=== PATIENT | female | born 1965 | race Caucasian/White ===

== ENCOUNTER → 2016-09-15 | Outpatient (CLI) | payer OTHER ==
--- NOTE | 2016-09-17 11:47 | MM ---
Reason for exam: screening (asymptomatic). Last mammogram was performed 4 years and 2 months ago. History: Patient is postmenopausal. Took hormonal contraceptives for 11 years beginning at age 30. Physical Findings: A clinical breast exam by your physician is recommended on an annual basis and results should be correlated with mammographic findings. MG Screening Mammo w CAD Bilateral CC and MLO view(s) were taken. Prior study comparison: July 26, 2012, bilateral digital screening mammo w/CAD. July 07, 2010, bilateral digital screening mammo w/CAD. The breast tissue is heterogeneously dense. This may lower the sensitivity of mammography. No significant changes when compared with prior studies. ASSESSMENT: Negative, BI-RAD 1 RECOMMENDATION: Routine screening mammogram of both breasts in 1 year.
== END | disposition home or self-care (01) ==
LOC: RADMAMWWP 16:33
PROVIDERS: ATTEND Family Medicine
DX: Z12.31 Encounter for screening mammogram for malignant neoplasm of breast (principal)

== ENCOUNTER → 2016-11-03 | Outpatient (CLI) | payer OTHER ==
--- NOTE | 2016-11-03 20:17 | CT ---
EXAMINATION TYPE: CT abdomen pelvis wo con DATE OF EXAM: 11/03/2016 6:54 PM COMPARISON: 05/03/2012 HISTORY: Left lower quadrant abdominal pain x [address] 1[address] DLP: 229.10 mGycm Automated exposure control for dose reduction was used. TECHNIQUE: Helical acquisition of images was performed from the lung bases through the pelvis. FINDINGS: The lung bases are clear. There is no pleural effusion. Heart size is normal. Liver spleen pancreas gallbladder appear normal. Bile ducts are not dilated. There is no adrenal mass. Kidneys have normal size and contour. There is no hydronephrosis. There is no retroperitoneal adenopathy. I see no intestinal wall thickening. There are no dilated loops. Bladd er distends smoothly. There is no sign of a pelvic mass. Appendix is not seen. There is no sign of ap pendicitis. I see no bony destructive process. Uterus is absent. IMPRESSION: NEGATIVE CT SCAN OF THE ABDOMEN AND PELVIS. NO ADVERSE CHANGE COMPARED TO OLD EXAM.
== END | disposition home or self-care (01) ==
LOC: RADCTMAIN 18:33
PROVIDERS: ATTEND Family Medicine
DX: R10.32 Left lower quadrant pain (principal)
CPT/HCPCS: 74176

== ENCOUNTER 2016-11-23 09:29 | Day surgery (SDC) | payer OTHER ==
[2016-11-23 10:20] VITALS: RESP 18; TEMP 97
[2016-11-23] MEDS ORDERED: LACTATED RINGERS 1,000 ML IV ONE (10:33)
[2016-11-23] MEDS ORDERED: LIDOCAINE 1% 20 ML VIAL (10MG/ML) FOR IV START INTRADERMA ONE (10:34)
[2016-11-23] MEDS ORDERED: PROPOFOL 10 MG/ML 20 ML VIAL IV ONE (11:02)
[2016-11-23] MEDS ORDERED: fentaNYL (PF) 50 MCG/ML 2 ML AMP ONE (11:02)
--- NOTE | 2016-11-23 11:18 | P.GSHP ---
History of Present Illness H&P Date: 11/23/16 Chief Complaint: Left lower quadrant pain This a 51-year-old female who presents today for colonoscopy. She's had chronic complaints of left lower quadrant pain. Her recent CAT scan was normal. - Constitutional Constitutional: Reports as per HPI Past Medical History Additional Past Medical History / Comment(s): TAKES BETAINE FOR "DIGESTING FOOD " History of Any Multi-Drug Resistant Organisms: None Reported Past Surgical History: Appendectomy, Hysterectomy Additional Past Surgical History / Comment(s): 2008 HYSTERECTOMY; 2011 OOPHORECTOMY Past Anesthesia/Blood Transfusion Reactions: No Reported Reaction Past Psychological History: No Psychological Hx Reported Smoking Status: Never smoker Past Alcohol Use History: Occasional Past Drug Use History: None Reported - Past Family History Mother Family Medical History: AICD/Pacemaker Father Family Medical History: Congestive Heart Failure (CHF), Myocardial Infarction ( [place]) Medications and Allergies Home Medications Medication Instructions Recorded Confirmed Type Betaine (Hydrochroric Acid) 2 cap PO PC-BID 11/23/16 History Multivitamin [Multiple Vitamins] 1 tab PO DAILY 11/23/16 11/23/16 History Allergies Allergy/AdvReac Type Severity Reaction Status Date / Time No Known Allergies Allergy Verified 11/23/16 10:05 Surgical - Exam Vital Signs Temp Pulse Resp BP Pulse Ox 97 F L 70 18 113/70 98 11/23/16 10:19 11/23/16 10:19 11/23/16 10:19 11/23/16 10:19 11/23/16 10:19 - General well developed, well nourished, no distress - Eyes PERRL - ENT normal pinna - Neck no masses - Respiratory normal expansion - Cardiovascular Rhythm: regular - Abdomen Abdomen: soft, non tender Assessment and Plan Plan: Left lower quadrant pain. We'll perform colonoscopy.
--- NOTE | 2016-11-23 11:38 | P.OP ---
Date of Procedure: 11/23/16 Preoperative Diagnosis: Left lower quadrant pain Postoperative Diagnosis: Normal colonoscopy Procedure(s) Performed: Colonoscopy Implants: Anesthesia: MAC Surgeon: Arnulfo Cannon Pathology: none sent Condition: stable Disposition: PACU Indications for Procedure: Operative Findings: Description of Procedure: PROCEDURE: The patient was placed on the endoscopy table in the lateral position. Digital rectal examination was performed which revealed no abnormalities. . Flexible colonoscope was then placed in the patient's anus and passed throughout the entire colon. The ileocecal valve was visualized. The cecum, ascending, transverse, descending and sigmoid colon were normal. The rectum was normal as well. There were no masses, polyps or diverticula noted in the entire colon. SUMMARY OF FINDINGS: Normal colonoscopy.
[2016-11-23 12:18] VITALS: BP 110/69; PULSE 60
== END 2016-11-23 13:06 | disposition home or self-care (01) ==
LOC: ORWHC2ENDO 09:29
PROVIDERS: ATTEND Surgery
DX: R10.32 Left lower quadrant pain (principal); Z79.899 Other long term (current) drug therapy; Z90.49 Acquired absence of other specified parts of digestive tract; Z90.710 Acquired absence of both cervix and uterus
CPT/HCPCS: 45378; J3010; J2704

== ENCOUNTER → 2018-07-11 | Outpatient (CLI) | payer BC ==
[2018-07-11 08:41] LABS: Basophils % (A) 0 %; Eosinophils # (A) 0.1 k/uL (0-0.7); Eosinophils % (A) 3 %; HGB 12.3 gm/dL (11.4-16.0); Lymphocytes # (A) 2.4 k/uL (1.0-4.8); Lymphocytes % (A) 49 %; MCH 29.7 pg (25.0-35.0); MCHC 32.3 g/dL (31.0-37.0); MCV 91.9 fL (80.0-100.0); Mean Platelet Volume 6.7; Monocytes # (A) 0.4 k/uL (0-1.0); Monocytes % (A) 8 %; Neutrophils # (A) 1.8 k/uL (1.3-7.7); Neutrophils % (A) 36 %; Platelet Count 274 k/uL (150-450); RBC 4.14 m/uL (3.80-5.40); RDW 13.2 % (11.5-15.5); WBC 4.9 k/uL (3.8-10.6)
[2018-07-11 10:23] LABS: Erythrocyte Sedimentation Rate 5 mm/hr (0-20)
[2018-07-11 17:45] LABS: Albumin 4.6 g/dL (3.80-4.90); Albumin/Globulin Ratio 2.19 (1.20-2.10); Anion Gap 5.8 mmol/L (4.00-12.00); Calcium 9.9 mg/dL (8.7-10.3); Carbon Dioxide 28.2 mmol/L (21.6-31.8); Globulin 2.1 g/dL (1.6-3.3); Potassium 4.8 mmol/L (3.5-5.5); Total Bilirubin 0.6 mg/dL (0.3-1.2); Total Protein 6.7 g/dL (6.2-8.2)
[2018-07-11 17:50] LABS: Iron Saturation 23.91 (12.00-45.00)
[2018-07-11 17:58] LABS: Vitamin D 25 Hydroxy 27.8 ng/mL (30.0-100.0)
[2018-07-11 17:59] LABS: Folate, Serum 23.4 ng/mL
== END ==
LOC: LABWHC1 06:55
PROVIDERS: ATTEND Family Medicine
DX: Z01.419 Encounter for gynecological examination (general) (routine) without abnormal findings (principal); R53.83 Other fatigue; R51 Headache; Z13.220 Encounter for screening for lipoid disorders
CPT/HCPCS: 36415; 80053; 80061; 82306; 82607; 82728; 82746; 83540; 83550; 84443; 85025; 85652; 86038

== ENCOUNTER → 2018-09-05 | Outpatient (CLI) | payer BC ==
--- NOTE | 2018-09-06 09:09 | MM ---
Reason for exam: screening (asymptomatic). Last mammogram was performed 2 years ago. History: Patient is postmenopausal. Took hormonal contraceptives for 11 years beginning at age 30. Physical Findings: A clinical breast exam by your physician is recommended on an annual basis and results should be correlated with mammographic findings. MG Screening Mammo w CAD Bilateral CC and MLO view(s) were taken. Prior study comparison: September 15, 2016, bilateral MG screening mammo w CAD. July 26, 2012, bilateral digital screening mammo w/CAD. The breast tissue is heterogeneously dense. This may lower the sensitivity of mammography. There is no discrete abnormality. No significant changes when compared with prior studies. ASSESSMENT: Negative, BI-RAD 1 RECOMMENDATION: Routine screening mammogram of both breasts in 1 year.
== END | disposition home or self-care (01) ==
LOC: RADMAMWWP 16:58
PROVIDERS: ATTEND Family Medicine
DX: Z12.31 Encounter for screening mammogram for malignant neoplasm of breast (principal)
CPT/HCPCS: 77067

== ENCOUNTER 2021-05-22 02:48 | Inpatient (IN) | payer BC ==
[2021-05-22] MEDS ORDERED: ONDANSETRON 4 MG/2 ML VIAL IVP STA (02:58)
[2021-05-22] MEDS ORDERED: SODIUM CHLORIDE 0.9% 1,000 ML IV STA ×2 (02:58)
[2021-05-22] MEDS ORDERED: PANTOPRAZOLE 40 MG/10 ML VIAL IVP STA (02:58)
--- NOTE | 2021-05-22 02:59 | ED ---
Nausea/Vomiting/Diarrhea HPI - General Chief complaint: Nausea/Vomiting/Diarrhea Stated complaint: Vomiting Time Seen by Provider: 05/22/21 02:52 Source: patient, RN notes reviewed, old records reviewed Mode of arrival: ambulatory Limitations: no limitations - History of Present Illness Initial comments: This is a 56-year-old female to the emergency room for evaluation. Patient resents today for evaluation regards to severe nausea vomiting abdominal pain sudden onset of severe abdominal pain tonight with persistent nausea vomiting since. Patient's presenting with multiple hours in the symptoms. Does have history of hysterectomy as well as appendectomy. No recent fevers otherwise been feeling well until tonight. No travel history or sick contacts MD complaint: nausea, vomiting, abdominal pain -: hour(s) Description of Vomiting: food contents Location: periumbilical Radiation: none Severity: severe Severity scale (1-10): 10 Quality: stabbing Consistency: constant Improves with: none Worsens with: none Associated Symptoms: loss of appetite, nausea/vomiting, weakness - Related Data Home Medications Medication Instructions Recorded Confirmed Betaine (Hydrochroric Acid) 2 cap PO PC-BID 11/23/16 Multivitamin [Multiple Vitamins] 1 tab PO DAILY 11/23/16 11/23/16 Allergies Allergy/AdvReac Type Severity Reaction Status Date / Time No Known Allergies Allergy Verified 05/22/21 02:53 Review of Systems ROS Statement: Those systems with pertinent positive or pertinent negative responses have been documented in the HPI. ROS Other: All systems not noted in ROS Statement are negative. Past Medical History Additional Past Medical History / Comment(s): TAKES BETAINE FOR "DIGESTING FOOD" History of Any Multi-Drug Resistant Organisms: None Reported Past Surgical History: Appendectomy, Hysterectomy Additional Past Surgical History / Comment(s): 2008 HYSTERECTOMY; 2011 OOPHORECTOMY Past Anesthesia/Blood Transfusion Reactions: No Reported Reaction Past Psychological History: No Psychological Hx Reported Smoking Status: Current every day smoker Past Alcohol Use History: Occasional Past Drug Use History: None Reported - Past Family History Mother Family Medical History: AICD/Pacemaker Father Family Medical History: Congestive Heart Failure (CHF), Myocardial Infarction ([place]) General Exam Limitations: no limitations General appearance: alert, in no apparent distress, anxious Head exam: Present: atraumatic, normocephalic, normal inspection Eye exam: Present: normal appearance, PERRL, EOMI. Absent: scleral icterus, conjunctival injection, periorbital swelling ENT exam: Present: normal exam, mucous membranes moist Neck exam: Present: normal inspection. Absent: tenderness, meningismus, lymphadenopathy Respiratory exam: Present: normal lung sounds bilaterally. Absent: respiratory distress, wheezes, rales, rhonchi, stridor Cardiovascular Exam: Present: tachycardia, normal heart sounds. Absent: systolic murmur, diastolic murmur, rubs, gallop, clicks GI/Abdominal exam: Present: distended, tenderness, guarding, normal bowel sounds. Absent: rebound, rigid Extremities exam: Present: normal inspection, full ROM, normal capillary refill. Absent: tenderness, pedal edema, joint swelling, calf tenderness Back exam: Present: normal inspection Neurological exam: Present: alert, oriented X3, CN II-XII intact Psychiatric exam: Present: normal affect, normal mood Skin exam: Present: warm, dry, intact, normal color. Absent: rash Course Vital Signs 05/22/21 02:49 Temperature 98.1 F Pulse Rate 103 H Respiratory 16 Rate Blood Pressure 92/69 O2 Sat by Pulse 100 Oximetry - Reevaluation(s) Reevaluation #1: 05/22/21 04:30 Medical record is reviewed Reevaluation #2: 05/22/21 04:31 Patient symptoms are improving here in the ER Reevaluation #3: 05/22/21 04:31 Patient informed of results and questions answered - Consultations Consultation #1: spoke with Dr. Fuentes who agrees to admit the patient will consult Dr. vigil Medical Decision Making - Medical Decision Making 56 female to the emergency department for evaluation of nausea vomiting abdominal pain. Patient does have significant small bowel obstruction patient be admitted for symptomatic treatment and surgical evaluation - Lab Data Result diagrams: 05/22/21 03:25 05/22/21 03:25 Lab Results 05/22/21 05/22/21 05/22/21 Range/Units 03:25 03:25 03:25 WBC 10.7 H (3.8-10.6) k/uL RBC 5.35 (3.80-5.40) m/uL Hgb 15.2 (11.4-16.0) gm/dL Hct 47.7 H (34.0-46.0) % MCV 89.0 (80.0-100.0) fL MCH 28.4 (25.0-35.0) pg MCHC 32.0 (31.0-37.0) g/dL RDW 13.8 (11.5-15.5) % Plt Count 385 (150-450) k/uL MPV 7.3 Neutrophils % 69 % Lymphocytes % 21 % Monocytes % 8 % Eosinophils % 1 % Basophils % 0 % Neutrophils # 7.3 (1.3-7.7) k/uL Lymphocytes # 2.3 (1.0-4.8) k/uL Monocytes # 0.9 (0-1.0) k/uL Eosinophils # 0.1 (0-0.7) k/uL Basophils # 0.0 (0-0.2) k/uL Sodium 138 (137-145) mmol/L Potassium 4.1 (3.5-5.1) mmol/L Chloride 94 L (98-107) mmol/L Carbon Dioxide 27 (22-30) mmol/L Anion Gap 17 mmol/L BUN 17 (7-17) mg/dL Creatinine 0.88 (0.52-1.04) mg/dL Est GFR (CKD-EPI)AfAm 85 (>60 ml/min/1.73 sqM) Est GFR (CKD-EPI)NonAf 74 (>60 ml/min/1.73 sqM) Glucose 155 H (74-99) mg/dL Calcium 11.1 H (8.4-10.2) mg/dL Total Bilirubin 0.9 (0.2-1.3) mg/dL AST 35 (14-36) U/L ALT 24 (4-34) U/L Alkaline Phosphatase 100 (38-126) U/L Troponin I <0.012 (0.000-0.034) ng/mL Total Protein 9.0 H (6.3-8.2) g/dL Albumin 5.0 (3.5-5.0) g/dL Amylase 56 (30-110) U/L Lipase 121 (23-300) U/L - Radiology Data Radiology results: report reviewed (CT abdomen and pelvis is positive for significant small bowel obstruction), image reviewed Disposition Clinical Impression: Small bowel obstruction, Nausea & vomiting, Abdominal pain Disposition: ADMITTED IP TO THIS HOSP Condition: Fair Is patient prescribed a controlled substance at d/c from ED?: No Referrals: None,Stated [REFERRING] - 1-2 days
[2021-05-22] MEDS ORDERED: HYDROmorphone 1 MG/ML 1 ML SYRINGE IVP STA (03:17)
[2021-05-22 03:45] LABS: Basophils % (A) 0 %; Eosinophils # (A) 0.1 k/uL (0-0.7); Eosinophils % (A) 1 %; HCT 47.7 % (34.0-46.0); HGB 15.2 gm/dL (11.4-16.0); Lymphocytes # (A) 2.3 k/uL (1.0-4.8); Lymphocytes % (A) 21 %; MCH 28.4 pg (25.0-35.0); Mean Platelet Volume 7.3; Monocytes # (A) 0.9 k/uL (0-1.0); Monocytes % (A) 8 %; Neutrophils # (A) 7.3 k/uL (1.3-7.7); Neutrophils % (A) 69 %; Platelet Count 385 k/uL (150-450); RBC 5.35 m/uL (3.80-5.40); RDW 13.8 % (11.5-15.5); WBC 10.7 k/uL (3.8-10.6)
[2021-05-22 04:14] LABS: Calcium 11.1 mg/dL (8.4-10.2); Potassium 4.1 mmol/L (3.5-5.1); Total Bilirubin 0.9 mg/dL (0.2-1.3)
--- NOTE | 2021-05-22 04:14 | CT ---
EXAMINATION TYPE: CT abdomen pelvis w con DATE OF EXAM: 05/22/2021 COMPARISON: 11/03/2016 HISTORY: pain CT DLP: 469.4 mGycm Automated exposure control for dose reduction was used. CONTRAST: Performed with IV Contrast, patient injected with 100 mL of Isovue 300. The lung bases are clear. There is no pleural effusion. Heart size is normal. There is no pericardial effusion. Liver spleen stomach pancreas gallbladder appear intact. The bile ducts are nondilated. Th ere is distended fluid-filled stomach. There is no adrenal mass. Kidneys show satisfactory contrast opacification. There is no hydronephrosi s. Ureters are not dilated. There is no retroperitoneal adenopathy. Bladder distends smoothly. There is no evidence of a pelvic mass. There is no inguinal hernia. There is no free fluid in the pelvis. There are multiple dilated fluid-filled small bowel loops in the mid abdomen. Distal small bowel is n ot dilated. Transition point not identified. There is small amount of free fluid around the right lob e of the liver. There is apparent surgical clips from appendectomy. Small bowel is dilated up to 3.3 cm. The lumbar vertebra have fairly normal alignment. Posterior elements are intact. There is no compress ion fracture. The bony pelvis is intact. The hip joints are intact. IMPRESSION: Dilated mid and proximal small bowel suggestive of mechanical mid small bowel obstruction that is a c hange compared to old exam. Transition point not identified. There is small amount of free fluid in t he right paracolic gutter of uncertain significance.
[2021-05-22] MEDS ORDERED: NALOXONE 0.4 MG/ML 1 ML VIAL IV PRN ×3 (04:28→17:54)
[2021-05-22] MEDS ORDERED: ONDANSETRON 4 MG/2 ML VIAL IVP PRN ×2 (04:28→17:45)
[2021-05-22] MEDS: SODIUM CHLORIDE 0.9% 1,000 ML IV SCH ×2 (06:57→08:54)
[2021-05-22] MEDS: PANTOPRAZOLE 40 MG/10 ML VIAL IV SCH (08:04)
[2021-05-22] MEDS: HYDROmorphone 1 MG/ML 1 ML SYRINGE IVP PRN ×2 (08:48→14:11)
[2021-05-22 10:29] LABS: Partial Thromboplastin Time 23.9 sec (22.0-30.0); Prothrombin Time 10.6 sec (9.0-12.0)
[2021-05-22 10:45] LABS: Appearance,Urine Clear (Clear); Bilirubin,Urine Negative (Negative); Blood,Urine Negative (Negative); Color,Urine Yellow; Glucose,Urine (UA) Negative (Negative); Ketones,Urine Negative (Negative); Leukocyte Esterase,Urine Moderate (Negative); Mucus,Urine Rare /hpf; Nitrite,Urine Negative (Negative); PH, Urine 7.5 (5.0-8.0); Protein,Urine Trace (Negative); RBC,Urine 2 /hpf (0-5); Squamous Epithelial Cell,Urine 4 /hpf (0-4); Urobilinogen,Urine <2.0 mg/dL (<2.0); WBC,Urine 2 /hpf (0-5)
[2021-05-22 11:11] LABS: Specific Gravity,Urine >1.050 (1.001-1.035)
--- NOTE | 2021-05-22 11:12 | XR ---
EXAMINATION TYPE: XR chest 1V portable DATE OF EXAM: 05/22/2021 COMPARISON: NONE HISTORY: NG tube placement TECHNIQUE: Single frontal view of the chest is obtained. FINDINGS: NG tube has been placed and is overlying appropriate position. Distal tip is overlying the left upper quadrant. No evident pneumothorax or pleural effusion. Patient is rotated. Cardiac medias tinal silhouette within normal limits. No evident airspace disease. IMPRESSION: NG tube is overlying appropriate position.
[2021-05-22 11:29] VITALS: BMI 18.9
--- NOTE | 2021-05-22 11:32 | P.GSCN ---
History of Present Illness Consult date: 05/22/21 History of present illness: CHIEF COMPLAINT: Abdominal pain HISTORY OF PRESENT ILLNESS: This is a 56-year-old female who presented to the hospital with complaints of lower abdominal pain with nausea and vomiting that started 2 days ago. Patient reports that she woke up Wednesday evening at 11 PM with severe lower abdominal pain. She was very nauseated and then she started to have vomiting almost every hour throughout the day on Wednesday. She reports that her abdomen is bloated and distended for her. She was not improving even with ambulating and taking Tums. She came into the ER for further evaluation. Computed tomography scan showed evidence of dilated mid and proximal small bowel suggestive of mechanical mid small bowel obstruction. Patient does have past surgical history of hysterectomy and appendectomy. She denies any prior history of bowel obstruction. Denies any cardiac history. PAST MEDICAL HISTORY: none PAST SURGICAL HISTORY: Appendectomy, hysterectomy MEDICATIONS: See list. ALLERGIES: See list. SOCIAL HISTORY: No illicit drug use. REVIEW OF SYSTEMS: CONSTITUTIONAL: Denies fever or chills. HEENT: Denies blurred vision, vision changes, or eye pain. Denies hemoptysis CARDIOVASCULAR: Denies chest pain or pressure. RESPIRATORY: No shortness of breath. GASTROINTESTINAL: See HPI for pertinent findings HEMATOLOGIC: Denies bleeding disorders. GENITOURINARY: Denies any blood in urine or increased urinary frequency. SKIN: Denies pruitis. Denies rash. PHYSICAL EXAM: VITAL SIGNS: Reviewed GENERAL: Well-developed in no acute distress. HEENT: No sclera icterus. Extraocular movements grossly intact. Moist buccal mucosa. Head is atraumatic, normocephalic. No nasal drainage. ABDOMEN: Soft. Distended. tenderness to palpation of the lower abdomen NEUROLOGIC: Alert and oriented. Cranial nerves II through XII grossly intact. LABORATORY DATA: WBC 10.7 Hgb 15.2 platelets 385 INR 1.0 Sodium 138 potassium 4.1 BUN 17 creatinine 0.88 Glucose 155 calcium 11.1 LFTs normal lipase normal Urinalysis moderate leukocyte esterase COVID-19 not detected IMAGING: Computed tomography scan abdomen and pelvis with IV contrast demonstrates dilated mid and proximal small bowel suggestive of mechanical mid small bowel obstruction that is a change compared to old exam. Transition point identified. There is small amount of free fluid in the right pericolic gutter of uncertain significance ASSESSMENT: 1. Mechanical mid small bowel obstruction 2. Abdominal pain with vomiting 3. Prior surgical history of hysterectomy and appendectomy PLAN: -Patient scheduled for exploratory laparotomy with lysis of adhesions for today, 05/22/[address] Cannon -Keep patient nothing by mouth -Place NG tube for decompression -Continue IV fluids -Continue pain medication and antiemetic as needed Physician [employer] note has been reviewed by physician. Signing provider agrees with the documented findings, assessment, and plan of care. 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 History of Any Multi-Drug Resistant Organisms: None Reported Past Surgical History: Appendectomy, Hysterectomy Additional Past Surgical History / Comment(s): 2008 HYSTERECTOMY; 2011 OOPHORECTOMY Past Anesthesia/Blood Transfusion Reactions: No Reported Reaction Past Psychological History: No Psychological Hx Reported Smoking Status: Former smoker Past Drug Use History: None Reported - Past Family History Mother Family Medical History: AICD/Pacemaker Father Family Medical History: Congestive Heart Failure (CHF), Myocardial Infarction ([place]) Medications and Allergies Home Medications Medication Instructions Recorded Confirmed Type Multivitamin [Multiple Vitamins] 1 tab PO DAILY 11/23/16 05/22/21 History Cholecalciferol (Vitamin D3) 75 mcg PO DAILY 05/22/21 05/22/21 History [Vitamin D3 (3000 Iu)] Allergies Allergy/AdvReac Type Severity Reaction Status Date / Time No Known Allergies Allergy Verified 05/22/21 06:29 Surgical - Exam Vital Signs Temp Pulse Resp BP Pulse Ox 98.1 F 103 H 16 92/69 100 05/22/21 02:49 05/22/21 02:49 05/22/21 02:49 05/22/21 02:49 05/22/21 02:49 Results - Labs 05/22/21 03:25 05/22/21 03:25 Abnormal Lab Results - Last 24 Hours (Table) 05/22/21 05/22/21 05/22/21 Range/Units 03:25 03:25 10:00 WBC 10.7 H (3.8-10.6) k/uL Hct 47.7 H (34.0-46.0) % Chloride 94 L (98-107) mmol/L Glucose 155 H (74-99) mg/dL Calcium 11.1 H (8.4-10.2) mg/dL Total Protein 9.0 H (6.3-8.2) g/dL Ur Specific [place] >1.050 H (1.001-1.035) Urine Protein Trace H (Negative) Ur Leukocyte Esterase Moderate H (Negative) Urine Mucus Rare H (None) /hpf Diabetes panel 05/22/21 Range/Units 03:25 Sodium 138 (137-145) mmol/L Potassium 4.1 (3.5-5.1) mmol/L Chloride 94 L (98-107) mmol/L Carbon Dioxide 27 (22-30) mmol/L BUN 17 (7-17) mg/dL Creatinine 0.88 (0.52-1.04) mg/dL Glucose 155 H (74-99) mg/dL Calcium 11.1 H (8.4-10.2) mg/dL AST 35 (14-36) U/L ALT 24 (4-34) U/L Alkaline Phosphatase 100 (38-126) U/L Total Protein 9.0 H (6.3-8.2) g/dL Albumin 5.0 (3.5-5.0) g/dL Calcium panel 05/22/21 Range/Units 03:25 Calcium 11.1 H (8.4-10.2) mg/dL Albumin 5.0 (3.5-5.0) g/dL Pituitary panel 05/22/21 Range/Units 03:25 Sodium 138 (137-145) mmol/L Potassium 4.1 (3.5-5.1) mmol/L Chloride 94 L (98-107) mmol/L Carbon Dioxide 27 (22-30) mmol/L BUN 17 (7-17) mg/dL Creatinine 0.88 (0.52-1.04) mg/dL Glucose 155 H (74-99) mg/dL Calcium 11.1 H (8.4-10.2) mg/dL Adrenal panel 05/22/21 Range/Units 03:25 Sodium 138 (137-145) mmol/L Potassium 4.1 (3.5-5.1) mmol/L Chloride 94 L (98-107) mmol/L Carbon Dioxide 27 (22-30) mmol/L BUN 17 (7-17) mg/dL Creatinine 0.88 (0.52-1.04) mg/dL Glucose 155 H (74-99) mg/dL Calcium 11.1 H (8.4-10.2) mg/dL Total Bilirubin 0.9 (0.2-1.3) mg/dL AST 35 (14-36) U/L ALT 24 (4-34) U/L Alkaline Phosphatase 100 (38-126) U/L Total Protein 9.0 H (6.3-8.2) g/dL Albumin 5.0 (3.5-5.0) g/dL
--- NOTE | 2021-05-22 14:38 | P.HPIM ---
History of Present Illness H&P Date: 05/22/21 HISTORY OF PRESENT ILLNESS This is a 56-year-old female patient of Dr. Fuentes with past medical history of [address] Henry, no polyps. She has history of hysterectomy and oophorectomy secondary to pain and varicose veins as well as appendectomy was done at that time. Patient states she developed pain in her abdomen on Wednesday AT 11 P.M. in the lower quadrants it was quite severe. She had remained lettuce previous and thought she may have some food poisoning. She continued to have pain and developed nausea and vomiting almost every hour. She denies having any blood in her stools, no blood in her emesis. She denies any weight loss. Patient came into [facility] emergency center for evaluation and found to be afebrile, heart rate 103, but pressure 92/69, pulse ox 100% on room air. WBC 10.7, hemoglobin 15.2, platelet count 385. INR 1.0. Chloride 94 otherwise electrolytes and renal function normal. Blood sugar 155. Calcium 11.1. Total bilirubin 0.8 and liver function tests normal. Troponin was negative. Albumin 5. Lipase 121. Rotavirus PCR not detected. Urinalysis was clear with leukoesterase moderate, WBC is 2. CAT scan of the abdomen and pelvis with contrast revealed dilated mid and proximal small bowel suggestive of mechanical mid small bowel obstruction. Transition point not identified. Small amount of free fluid in the right paracolic gutter of uncertain significance. Chest x-ray reveals good positioning of the NG tube. Patient has been seen by general surgery and is scheduled for exploratory laparotomy and lysis of adhesions today. REVIEW OF SYSTEMS Constitutional: No fever, no chills, no night sweats. No weight change. No weakness, fatigue or lethargy. No daytime sleepiness. EENT: No headache. No blurred vision or double vision, no loss of vision. No loss of Hearing, no ringing in the ears, no dizziness. No nasal drainage or congestion. No epistaxis. No sore throat. Lungs: No shortness of breath, cough, no sputum production. No wheezing. Cardiovascular: No chest pain, no lower extremity edema. No palpitations. No paroxysmal nocturnal dyspnea. No orthopnea. No lightheadedness or dizziness. No syncopal episodes. Abdominal: Reports abdominal pain. Reports nausea, Reportsvomiting. No diarrhea. No constipation. No bloody or tarry stools. No loss of appetite. Genitourinary: No dysuria, increased frequency, urgency. No urinary retention. Musculoskeletal: No myalgias. No muscle weakness, no gait dysfunction, no frequent falls. No back pain. No neck pain. Integumentary: No wounds, no lesions. No rash or pruritus. No unusual br uising. No change in hair or nails. Neurologic: No aphasia. No facial droop. No change in mentation. No head injury. No headache. No paralysis. No paresthesia. Psychiatric: No depression. No anxiety. No mood swings. Endocrine: No abnormal blood sugars. No weight change. No excessive sweating or thirst. No cold intolerance. SOCIAL HISTORY Patient denies history of smoking, she uses alcohol occasionally. No marijuana use. She is . She has no DME in place. FAMILY HISTORY Mother at age 90 from heart failure. Father at age 74 from heart failure. Patient has 2 brothers and one at age 69 from heart failure and C OPD. One brother at age 64 from leukemia. Patient has one son with no major medical problems.. PHYSICAL EXAMINATION Gen: This is a 56-year-old female. She is resting in bed and appears to be comfortable and in no acute distress. HEENT: Head is atraumatic, normocephalic. Pupils equal, round. Sclerae is anicteric. NG tube in place not yet hooked up to suction. NECK: Supple. No JVD. No lymphadenopathy. No thyromegaly. LUNGS: Clear to auscultation. No wheezes or rhonchi. No intercostal retractions. HEART: Regular rate and rhythm. No murmur. ABDOMEN: Soft. Bowel sounds are present. No masses. Bilateral lower quadrant tenderness. EXTREMITIES: No pedal edema. No calf tenderness. Dorsalis pedis palpable bilaterally. NEUROLOGICAL: Patient is awake, alert and oriented x3. Cranial nerves 2 through 12 are grossly intact. ASSESSMENT AND PLAN Mechanical small bowel obstruction. NG tube, pain medication and Zofran for nausea, patient is scheduled for exploratory laparotomy and lysis of adhesions today with Dr. Cannon. Patient is nothing by mouth. Continue IV fluids 0.9 normal saline at 130 mL per hour. Abdominal pain, nausea and vomiting secondary to small bowel obstruction. Continue as in #1. History of hysterectomy and oophorectomy, appendectomy. Prophylaxis. Protonix 40 mg IV daily. COVID-19 testing negative. Patient has been hospitalized during a pandemic. Patient will be admitted to the hospital for a minimum of 2 night stay. DISCHARGE PLAN Home. Impression and plan of care have been directed as dictated by the signing physician. Eli Price nurse practitioner acting as scribe for signing physician. 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 History of Any Multi-Drug Resistant Organisms: None Reported Past Surgical History: Appendectomy, Hysterectomy Additional Past Surgical History / Comment(s): 2008 HYSTERECTOMY; 2011 OOPHORECTOMY Past Anesthesia/Blood Transfusion Reactions: No Reported Reaction Past Psychological History: No Psychological Hx Reported Smoking Status: Former smoker Past Drug Use History: None Reported - Past Family History Mother Family Medical History: AICD/Pacemaker Father Family Medical History: Congestive Heart Failure (CHF), Myocardial Infarction (ID) Medications and Allergies Home Medications Medication Instructions Recorded Confirmed Type Multivitamin [Multiple Vitamins] 1 tab PO DAILY 11/23/16 05/22/21 History Cholecalciferol (Vitamin D3) 75 mcg PO DAILY 05/22/21 05/22/21 History [Vitamin D3 (3000 Iu)] Allergies Allergy/AdvReac Type Severity Reaction Status Date / Time No Known Allergies Allergy Verified 05/22/21 06:29 Physical Exam Vitals: Vital Signs Temp Pulse Pulse Resp BP BP Pulse Ox 05/22/21 07:58 98.5 F 82 15 110/74 96 05/22/21 07:17 98.0 F 80 16 107/71 97 05/22/21 02:49 98.1 F 103 H 16 92/69 100 Intake and Output 05/21/21 05/22/21 05/22/21 22:59 06:59 14:59 Other: # Voids 1 Weight 50 kg 50 kg Results CBC & Chem 7: 05/22/21 03:25 05/22/21 03:25 Labs: Abnormal Lab Results - Last 24 Hours (Table) 05/22/21 05/22/21 05/22/21 Range/Units 03:25 03:25 10:00 WBC 10.7 H (3.8-10.6) k/uL Hct 47.7 H (34.0-46.0) % Chloride 94 L (98-107) mmol/L Glucose 155 H (74-99) mg/dL Calcium 11.1 H (8.4-10.2) mg/dL Total Protein 9.0 H (6.3-8.2) g/dL Ur Specific [place] >1.050 H (1.001-1.035) Urine Protein Trace H (Negative) Ur Leukocyte Esterase Moderate H (Negative) Urine Mucus Rare H (None) /hpf Thrombosis Risk Factor Assmnt - Choose All That Apply Any of the Below Risk Factors Present?: Yes Each Factor Represents 1 point: Age 41-60 years, Varicose veins Other Risk Factors: No Other congenital or acquired thrombophilia - If yes, enter type in comment: No Thrombosis Risk Factor Assessment Total Risk Factor Score: 2 Thrombosis Risk Factor Assessment Level: Low Risk
[2021-05-22] MEDS: ONDANSETRON 4 MG/2 ML VIAL IVP PRN (14:59)
[2021-05-22] MEDS ORDERED: IV FLUID CONTINUATION 1,000 ML IV ONE (16:12)
[2021-05-22 16:29] LABS: Glucose,Whole Blood 84 mg/dL (75-99)
[2021-05-22] MEDS ORDERED: HEPARIN SODIUM,PORCINE/PF 5,000 UNIT/0.5 ML SYRINGE SQ ONE (16:40)
[2021-05-22 16:45] LABS: ALT 18 U/L (4-34); AST 31 U/L (14-36); African American GFR (CKD) >90 (>60 ml/min/1.73 sqM); Albumin 3.7 g/dL (3.5-5.0); Alkaline Phosphatase 55 U/L (38-126); Anion Gap 6 mmol/L; Blood Urea Nitrogen 15 mg/dL (7-17); Carbon Dioxide 26 mmol/L (22-30); Chloride 107 mmol/L (98-107); Glucose 90 mg/dL (74-99); Non-African American GFR(CKD) >90 (>60 ml/min/1.73 sqM); Potassium 3.6 mmol/L (3.5-5.1); Sodium 139 mmol/L (137-145); Total Bilirubin 0.7 mg/dL (0.2-1.3); Total Protein 6.3 g/dL (6.3-8.2)
[2021-05-22] MEDS ORDERED: MIDAZOLAM 2 MG/2 ML VIAL IVP ONE (16:52)
[2021-05-22] MEDS ORDERED: .fentaNYL (PF) 50 MCG/ML 2 ML AMP ONE (17:00)
[2021-05-22] MEDS ORDERED: PHENYLEPHRINE-0.9% NACL SYG 1,000 MCG/10 ML SYRINGE ONE (17:00)
[2021-05-22] MEDS ORDERED: LIDOCAINE 1% INJ 10MG/ML (20 ML MDV) ONE (17:00)
[2021-05-22] MEDS ORDERED: ROCURONIUM 10 MG/ML (5 ML VIAL) IV ONE (17:00)
[2021-05-22] MEDS ORDERED: SUGAMMADEX SODIUM 500 MG/5 ML SDV IV ONE (17:00)
[2021-05-22] MEDS ORDERED: SUCCINYLCHOLINE CHLORIDE 100 MG/5 ML SYR IV ONE (17:00)
[2021-05-22] MEDS ORDERED: PROPOFOL 10 MG/ML 20 ML VIAL IV ONE (17:00)
[2021-05-22] MEDS ORDERED: LACTATED RINGERS 1,000 ML IV ONE ×2 (17:31→17:45)
[2021-05-22] MEDS ORDERED: HYDROmorphone 0.5 MG/0.5 ML SYRINGE IVP PRN (17:45)
--- NOTE | 2021-05-22 17:45 | P.OP ---
Date of Procedure: 05/22/21 Preoperative Diagnosis: Small bowel obstruction Postoperative Diagnosis: Small bowel obstruction secondary to adhesive band Procedure(s) Performed: Exploratory laparotomy, lysis of adhesion Anesthesia: FLORI Surgeon: Arnulfo Cannon Estimated Blood Loss (ml): 20 Pathology: none sent Condition: stable Disposition: PACU Description of Procedure: The patient's placed on the operative table in the supine position. She received general endotracheal tube anesthesia. Her abdomen was prepped and draped usual fashion. The abdomen was entered through midline incision. Upon entering the abdomen there was some ascites. The small bowel was grasped. The small bowel was then run down towards the left lower quadrant. There was adhesive band obstruction of the terminal ileum. This was lysed. Small bowel was then run from ligament traced down to the ileocecal valve. There is no other obstruction seen. The abdomen was then closed loop #1. Skin was closed blake. Patient top she will well and was sent to recovery in stable condition.
[2021-05-22] MEDS ORDERED: HYDROmorphone 0.5 MG/0.5 ML SYRINGE IVP ONE (18:32)
--- NOTE | 2021-05-22 18:58 | P.ANPRN ---
Procedure Note - Anesthesia - Epidural/Spinal Epidural Continuous Time Out Performed: Yes Date of Procedure: 05/22/21 Procedure Start Time: 16:52 Procedure Stop Time: 16:58 Location of Patient: PreOp Indication: Acute Post-Operative Pain, Requested by Surgeon Sedation Type: Sedate with meaningful contact maintained Preparation: Sterile Dressing Position: Sitting Catheter: Indwelling Needle Guage: 18 Injectate: Test Dose Lidocaine1.5% w/1:200,000 epi Blood Aspirated: No Pain Paresthesia on Injection Noted: No Events: Uneventful and Well Tolerated (test dose 3cc given with no adverse effects)
[2021-05-22] MEDS: ROPIVACAINE 250 MG, HYDROMORPHONE (PF) 5 MG in SODIUM CHLORIDE 0.9% 200 ML EPIDURAL PRN (19:33)
[2021-05-22] MEDS: HEPARIN SODIUM,PORCINE/PF 5,000 UNIT/0.5 ML SYRINGE SQ SCH (23:20)
[2021-05-23] MEDS: SODIUM CHLORIDE 0.9% 1,000 ML IV SCH ×4 (03:27→20:05)
[2021-05-23 04:57] LABS: Basophils % (A) 0 %; Eosinophils # (A) 0.1 k/uL (0-0.7); Eosinophils % (A) 2 %; HCT 35.1 % (34.0-46.0); Hypochromasia Slight; Lymphocytes # (A) 1.9 k/uL (1.0-4.8); Lymphocytes % (A) 25 %; MCH 29.4 pg (25.0-35.0); MCHC 31.6 g/dL (31.0-37.0); MCV 93.1 fL (80.0-100.0); Mean Platelet Volume 7.1; Monocytes # (A) 0.8 k/uL (0-1.0); Monocytes % (A) 11 %; Neutrophils # (A) 4.6 k/uL (1.3-7.7); Neutrophils % (A) 61 %; Platelet Count 242 k/uL (150-450); RBC 3.77 m/uL (3.80-5.40); RDW 13.9 % (11.5-15.5); WBC 7.6 k/uL (3.8-10.6)
[2021-05-23 05:13] LABS: HGB 11.1 gm/dL (11.4-16.0)
--- NOTE | 2021-05-23 07:50 | P.PN ---
Progress Note - Text 05/23/21 644am 56-year-old female status post exploratory lap by Dr. Cannon. Patient has an epidural catheter for postop pain control with the solution running at 6 mL an hour with a VAS of 2. No sensory or motor deficit noted dressing clean dry and intact plan to continue epidural infusion
[2021-05-23] MEDS: HEPARIN SODIUM,PORCINE/PF 5,000 UNIT/0.5 ML SYRINGE SQ SCH ×3 (08:37→23:57)
[2021-05-23] MEDS: PANTOPRAZOLE 40 MG/10 ML VIAL IV SCH (08:37)
[2021-05-23 10:21] LABS: African American GFR (CKD) 117.3 (60.0-200.0); Albumin 3.3 g/dL (3.8-4.9); Albumin/Globulin Ratio 2.2 (1.60-3.17); Anion Gap 9.3 mmol/L (10.00-18.00); BUN/Creat Ratio 22.33 Ratio (12.00-20.00); Blood Urea Nitrogen 13.4 mg/dL (9.0-27.0); Calcium 8.2 mg/dL (8.7-10.3); Carbon Dioxide 23.7 mmol/L (20.0-27.5); Globulin 1.5 g/dL (1.6-3.3); Non-African American GFR(CKD) 101.2 (60.0-200.0); Potassium 3.7 mmol/L (3.5-5.5); Total Bilirubin 0.5 mg/dL (0.30-1.20); Total Protein 4.8 g/dL (6.2-8.2)
--- NOTE | 2021-05-23 11:28 | P.PN ---
<Gris Dangelo - Last Filed: 05/23/21 11:18> Subjective Progress Note Date: 05/23/21 CHIEF COMPLAINT: Small bowel obstruction HISTORY OF PRESENT ILLNESS: Patient is postop day #1 status post exploratory laparotomy with lysis of adhesion for small bowel obstruction secondary to adhesive band. Patient's pain is controlled. She has epidural in place. She rates her pain about a 3 out of 10. Denies any nausea vomiting. Denies flatus. Afebrile. WBC 7.6 Hgb 15 down to 11.1 PHYSICAL EXAM: VITAL SIGNS: Reviewed. GENERAL: Well-developed in no acute distress. HEENT: No sclera icterus. Extraocular movements grossly intact. Moist buccal mucosa. Head is atraumatic, normocephalic. ABDOMEN: Soft. Nondistended. Nontender. Incisional dressing with blood saturation noted in the middle of the dressing. NEUROLOGIC: Alert and oriented. Cranial nerves II through XII grossly intact. ASSESSMENT: 1. Small bowel obstruction secondary to adhesive band status post exploratory laparotomy with lysis of adhesion PLAN: -Continue NG tube for decompression -Continue epidural and Hurt catheter -Continue IV fluids -Continue supportive care -Repeat CBC in a.m. -Continue GI prophylaxis Protonix and DVT prophylaxis subcu heparin Physician Marketing Administrator note has been reviewed by physician. Signing provider agrees with the documented findings, assessment, and plan of care. Objective - Vital Signs Vital signs: Vital Signs Temp 98.9 F 05/23/21 04:43 Pulse 69 05/23/21 04:43 Resp 18 05/23/21 04:43 BP 97/60 05/23/21 04:43 Pulse Ox 100 05/23/21 04:43 Intake & Output 05/22/21 05/23/21 05/23/21 18:59 06:59 18:59 Intake Total 1050 1873 Output Total 910 50 Balance 140 1823 Weight 50 kg Intake: IV 1050 313 Intake, IV Titration 1560 Amount Sodium Chloride 0.9% 1, 1560 000 ml @ 130 mls/hr IV . Q7H42M [facility] Rx#:[id number] Output: Gastric Drainage 850 Urine 50 50 Estimated Blood Loss 10 Other: Voiding Method Indwelling Catheter Indwelling Catheter # Voids 1 # Emeses 0 - Labs CBC & Chem 7: 05/23/21 04:24 05/23/21 04:24 Labs: Abnormal Lab Results - Last 24 Hours (Table) 05/23/21 05/23/21 Range/Units 04:24 04:24 RBC 3.77 L (3.80-5.40) m/uL Hgb 11.1 L D (11.4-16.0) gm/dL Anion Gap 9.30 L (10.00-18.00) mmol/L BUN/Creatinine Ratio 22.33 H (12.00-20.00) Ratio Calcium 8.2 L (8.7-10.3) mg/dL Total Protein 4.8 L (6.2-8.2) g/dL Albumin 3.3 L (3.8-4.9) g/dL Globulin 1.5 L (1.6-3.3) g/dL <Chris De La Cruz - Last Filed: 05/23/21 16:05> Subjective As above. Patient doing better today. Pain improved. No flatus. Keep nasogastric tube in place. Increase activity. Objective - Vital Signs Vital signs: Vital Signs Temp 98.6 F 05/23/21 13:57 Pulse 76 05/23/21 13:57 Resp 16 05/23/21 13:57 BP 98/60 05/23/21 13:57 Pulse Ox 99 05/23/21 13:57 Intake & Output 05/22/21 05/23/21 05/23/21 18:59 06:59 18:59 Intake Total 1050 1873 Output Total 910 50 500 Balance 140 1823 -500 Weight 50 kg Intake: IV 1050 313 Intake, IV Titration 1560 Amount Sodium Chloride 0.9% 1, 1560 000 ml @ 130 mls/hr IV . Q7H42M [facility] Rx#:[id number] Output: Gastric Drainage 850 500 Urine 50 50 Estimated Blood Loss 10 Other: Voiding Method Indwelling Catheter Indwelling Catheter # Voids 1 # Emeses 0 - Labs CBC & Chem 7: 05/23/21 04:24 05/23/21 04:24 Labs: Abnormal Lab Results - Last 24 Hours (Table) 05/23/21 05/23/21 Range/Units 04:24 04:24 RBC 3.77 L (3.80-5.40) m/uL Hgb 11.1 L D (11.4-16.0) gm/dL Anion Gap 9.30 L (10.00-18.00) mmol/L BUN/Creatinine Ratio 22.33 H (12.00-20.00) Ratio Calcium 8.2 L (8.7-10.3) mg/dL Total Protein 4.8 L (6.2-8.2) g/dL Albumin 3.3 L (3.8-4.9) g/dL Globulin 1.5 L (1.6-3.3) g/dL
--- NOTE | 2021-05-23 16:40 | P.PN ---
Subjective Progress Note Date: 05/23/21 HISTORY OF PRESENT ILLNESS This is a 56-year-old female patient of Dr. Fuentes with past medical history of [address] Henry, no polyps. She has history of hys terectomy and oophorectomy secondary to pain and varicose veins as well as appendectomy was done at that time. Patient states she developed pain in her abdomen on Wednesday AT 11 P.M. in the lower quadrants it was quite severe. She had remained lettuce previous and thought she may have some food poisoning. She continued to have pain and developed nausea and vomiting almost every hour. She denies having any blood in her stools, no blood in her emesis. She denies any weight loss. Patient came into [facility] emergency center for evaluation and found to be afebrile, heart rate 103, but pressure 92/69, pulse ox 100% on room air. WBC 10.7, hemoglobin 15.2, platelet count 385. INR 1.0. Chloride 94 otherwise electrolytes and renal function normal. Blood sugar 155. Calcium 11.1. Total bilirubin 0.8 and liver function tests normal. Troponin was negative. Albumin 5. Lipase 121. Rotavirus PCR not detected. Urinalysis was clear with leukoesterase moderate, WBC is 2. CAT scan of the abdomen and pelvis with contrast revealed dilated mid and proximal small bowel suggestive of mechanical mid small bowel obstruction. Transition point not identified. Small amount of free fluid in the right paracolic gutter of uncertain significance. Chest x-ray reveals good positioning of the NG tube. Patient has been seen by general surgery and is scheduled for exploratory lapa rotomy and lysis of adhesions today. 05/23: Yesterday, patient underwent exploratory laparotomy and lysis of adhesion with Dr. Cannon. She has been afebrile, heart rate 69, blood pressure 97/60, pulse ox 100% on 2 L nasal cannula. Repeat blood work reveals WBC 7.6, hemoglobin 0.1. Platelet count 242. Electrolytes normal. Anion gap 9.3. Creatinine 0.6. Blood sugar 90. Calcium 8.2. Liver function tests normal.patient has epidural catheter in place for pain control. Patient is nothing by mouth. Patient states her pain is a #3/10. No nausea or vomiting. No bowel movement. Discharge plan is for return home. REVIEW OF SYSTEMS Constitutional: No fever, no chills, no night sweats. No weight change. No weakness, fatigue or lethargy. No daytime sleepiness. EENT: No headache. No blurred vision or double vision, no loss of vision. No loss of Hearing, no ringing in the ears, no dizziness. No nasal drainage or congestion. No epistaxis. No sore throat. Lungs: No shortness of breath, cough, no sputum production. No wheezing. Cardiovascular: No chest pain, no lower extremity edema. No palpitations. No paroxysmal nocturnal dyspnea. No orthopnea. No lightheadedness or dizziness. No syncopal episodes. Abdominal: Reports abdominal pain. Denies nausea, denies. No diarrhea. No constipation. No bloody or tarry stools. No loss of appetite. Genitourinary: No dysuria, increased frequency, urgency. No urinary retention. Musculoskeletal: No myalgias. No muscle weakness, no gait dysfunction, no frequent falls. No back pain. No neck pain. Integumentary: No wounds, no lesions. No rash or pruritus. No unusual bruising. No change in hair or nails. Neurologic: No aphasia. No facial droop. No change in mentation. No head injury. No headache. No paralysis. No paresthesia. Psychiatric: No depression. No anxiety. No mood swings. Endocrine: No abnormal blood sugars. No weight change. No excessive sweating or thirst. No cold intolerance. PHYSICAL EXAMINATION Gen: This is a 56-year-old female. She is resting in bed and appears to be comfortable and in no acute distress. HEENT: Head is atraumatic, normocephalic. Pupils equal, round. Sclerae is anicteric. NG tube in place not yet hooked up to suction. NECK: Supple. No JVD. No lymphadenopathy. No thyromegaly. LUNGS: Clear to auscultation. No wheezes or rhonchi. No intercostal retractions. HEART: Regular rate and rhythm. No murmur. ABDOMEN: Soft. Bowel sounds are present. No masses. Dressing midline with dried blood. EXTREMITIES: No pedal edema. No calf tenderness. Dorsalis pedis palpable bilaterally. NEUROLOGICAL: Patient is awake, alert and oriented x3. Cranial nerves 2 through 12 are grossly intact. ASSESSMENT AND PLAN Mechanical small bowel obstruction status post exploratory laparotomy and lysis of adhesions, 05/22. NG tube, epidural for pain control, and Zofran for nausea. Patient is nothing by mouth. Continue IV fluids 0.9 normal saline at 130 mL per hour. Abdominal pain, nausea and vomiting secondary to small bowel obstruction. Continue as in #1. History of hysterectomy and oophorectomy, appendectomy. Prophylaxis. Protonix 40 mg IV daily. COVID-19 testing negative. Patient has been hospitalized during a pandemic. DISCHARGE PLAN Home. Impression and plan of care have been directed as dictated by the signing physician. Eli Price nurse practitioner acting as scribe for signing physician. Objective - Vital Signs Vital signs: Vital Signs Temp 98.9 F 05/23/21 04:43 Pulse 69 05/23/21 04:43 Resp 18 05/23/21 04:43 BP 97/60 05/23/21 04:43 Pulse Ox 100 05/23/21 04:43 Intake & Output 05/22/21 05/23/21 05/23/21 18:59 06:59 18:59 Intake Total 1050 1873 Output Total 910 50 Balance 140 1823 Weight 50 kg Intake: IV 1050 313 Intake, IV Titration 1560 Amount Sodium Chloride 0.9% 1, 1560 000 ml @ 130 mls/hr IV . Q7H42M [facility] Rx#:[id number] Output: Gastric Drainage 850 Urine 50 50 Estimated Blood Loss 10 Other: Voiding Method Indwelling Catheter # Voids 1 # Emeses 0 - Labs CBC & Chem 7: 05/23/21 04:24 05/23/21 04:24 Labs: Abnormal Lab Results - Last 24 Hours (Table) 05/22/21 05/23/21 05/23/21 Range/Units 10:00 04:24 04:24 RBC 3.77 L (3.80-5.40) m/uL Hgb 11.1 L D (11.4-16.0) gm/dL Anion Gap 9.30 L (10.00-18.00) mmol/L BUN/Creatinine Ratio 22.33 H (12.00-20.00) Ratio Calcium 8.2 L (8.7-10.3) mg/dL Total Protein 4.8 L (6.2-8.2) g/dL Albumin 3.3 L (3.8-4.9) g/dL Globulin 1.5 L (1.6-3.3) g/dL Ur Specific [place] >1.050 H (1.001-1.035) Urine Protein Trace H (Negative) Ur Leukocyte Esterase Moderate H (Negative) Urine Mucus Rare H (None) /hpf
[2021-05-24] MEDS: ROPIVACAINE 250 MG, HYDROMORPHONE (PF) 5 MG in SODIUM CHLORIDE 0.9% 200 ML EPIDURAL PRN (03:19)
[2021-05-24] MEDS: SODIUM CHLORIDE 0.9% 1,000 ML IV SCH ×3 (04:56→19:28)
[2021-05-24 06:28] LABS: Basophils % (A) 0 %; Eosinophils # (A) 0.1 k/uL (0-0.7); Eosinophils % (A) 2 %; HCT 33.3 % (34.0-46.0); HGB 10.4 gm/dL (11.4-16.0); Hypochromasia Moderate; Lymphocytes # (A) 1.7 k/uL (1.0-4.8); Lymphocytes % (A) 24 %; MCHC 31.1 g/dL (31.0-37.0); MCV 93.3 fL (80.0-100.0); Mean Platelet Volume 7.5; Monocytes # (A) 0.8 k/uL (0-1.0); Monocytes % (A) 12 %; Neutrophils # (A) 4.4 k/uL (1.3-7.7); Neutrophils % (A) 62 %; Platelet Count 208 k/uL (150-450); RBC 3.57 m/uL (3.80-5.40); RDW 13.4 % (11.5-15.5); WBC 7.2 k/uL (3.8-10.6)
--- NOTE | 2021-05-24 08:44 | P.PN ---
Progress Note - Text Progress Note Date: 05/24/21 (731) Anesthesia Postop day 2 Status post exploratory laparotomy with epidural date 3 Patient seen and examined. Doing well. VAS 2-3 out of 10. Mild pruritus. Primary complaining of dryness in the nose. Humidified oxygen has just been put on her. Ropivacaine 0.1% with Dilaudid 20 mcg/mL at 8 mL an hour. Objective: Vital signs reviewed Lungs: Good chest excursion Abdomen: Appears nondistended Other: Epidural Site Intact without induration. Dressing intact Neuro: No apparent motor block. Sensory within normal limits. Assessment: Status post auditory laparotomy postop day #2 Plan: Continue current care with your medical management. Anticipate discontinued epidural catheter tomorrow.
[2021-05-24] MEDS: PANTOPRAZOLE 40 MG/10 ML VIAL IV SCH (09:03)
[2021-05-24] MEDS: HEPARIN SODIUM,PORCINE/PF 5,000 UNIT/0.5 ML SYRINGE SQ SCH ×3 (09:03→23:28)
--- NOTE | 2021-05-24 10:55 | P.PN ---
Subjective Progress Note Date: 05/24/21 Principal diagnosis: Small bowel obstruction Patient doing better today. No flatus. No significant abdominal pain. She is afebrile. White blood cell count normal. Objective - Vital Signs Vital signs: Vital Signs Temp 98.2 F 05/24/21 04:59 Pulse 74 05/24/21 07:38 Resp 16 05/24/21 07:38 BP 102/63 05/24/21 07:38 Pulse Ox 100 05/24/21 07:38 Intake & Output 05/23/21 05/24/21 05/24/21 18:59 06:59 18:59 Intake Total 95.333 Output Total 650 580 Balance -650 -484.667 Intake: Intake, IV Titration 95.333 Amount Ropivacaine 250 mg 95.333 Hydromorphone (Pf) 5 mg In Sodium Chloride 0.9% 200 ml @ Per Protocol EPIDURAL .Q0M PRN Rx#: [id number] Output: Gastric Drainage 650 100 Urine 480 Other: Voiding Method Indwelling Catheter Indwelling Catheter - Exam Abdomen: Soft, nondistended, alternatives, dressing with some sanguinous drainage - Labs CBC & Chem 7: 05/24/21 05:30 05/23/21 04:24 Labs: Abnormal Lab Results - Last 24 Hours (Table) 05/24/21 Range/Units 05:30 RBC 3.57 L (3.80-5.40) m/uL Hgb 10.4 L (11.4-16.0) gm/dL Hct 33.3 L (34.0-46.0) % Assessment and Plan (1) Small bowel obstruction Narrative/Plan: Patient doing well today. Keep nasogastric tube in place. May have ice chips and popsicles. Ambulate. Keep epidural for today. Current Visit: Yes Status: Acute Code(s): K56.609 - UNSP INTESTNL OBST, UNSP TO PARTIAL VERSUS COMPLETE OBST SNOMED Code(s): 087435402
--- NOTE | 2021-05-24 11:21 | P.PN ---
Subjective Progress Note Date: 05/24/21 HISTORY OF PRESENT ILLNESS This is a 56-year-old female patient of Dr. Fuentes with past medical history of [address] Henry, no polyps. She has history of hyst erectomy and oophorectomy secondary to pain and varicose veins as well as appendectomy was done at that time. Patient states she developed pain in her abdomen on Wednesday AT 11 P.M. in the lower quadrants it was quite severe. She had remained lettuce previous and thought she may have some food poisoning. She continued to have pain and developed nausea and vomiting almost every hour. She denies having any blood in her stools, no blood in her emesis. She denies any weight loss. Patient came into [facility] emergency center for evaluation and found to be afebrile, heart rate 103, but pressure 92/69, pulse ox 100% on room air. WBC 10.7, hemoglobin 15.2, platelet count 385. INR 1.0. Chloride 94 otherwise electrolytes and renal function normal. Blood sugar 155. Calcium 11.1. Total bilirubin 0.8 and liver function tests normal. Troponin was negative. Albumin 5. Lipase 121. Rotavirus PCR not detected. Urinalysis was clear with leukoesterase moderate, WBC is 2. CAT scan of the abdomen and pelvis with contrast revealed dilated mid and proximal small bowel suggestive of mechanical mid small bowel obstruction. Transition point not identified. Small amount of free fluid in the right paracolic gutter of uncertain significance. Chest x-ray reveals good positioning of the NG tube. Patient has been seen by general surgery and is scheduled for exploratory lapar otomy and lysis of adhesions today. 05/23: Yesterday, patient underwent exploratory laparotomy and lysis of adhesion with Dr. Cannon. She has been afebrile, heart rate 69, blood pressure 97/60, pulse ox 100% on 2 L nasal cannula. Repeat blood work reveals WBC 7.6, hemoglobin 0.1. Platelet count 242. Electrolytes normal. Anion gap 9.3. Creatinine 0.6. Blood sugar 90. Calcium 8.2. Liver function tests normal.patient has epidural catheter in place for pain control. Patient is nothing by mouth. Patient states her pain is a #3/10. No nausea or vomiting. No bowel movement. Discharge plan is for return home. 05/24: Patient was examined at the bedside. Patient is postop day 1 for an exploratory lap. NG tube is still in place. Remains nothing by mouth. Pain has improved at 2 out of 10 at this time. Patient has no flatulence or bowel movement. Bowel sounds are hypoactive. Abdomen is tender and soft. Patient was upset this morning and tearful due to her condition. After discussion, patient mood had improved. Patient was up to a chair earlier this morning however epidural is still in place. Indwelling catheter and place draining clear fluid. Incentive spirometer use encouraged. Incision is clean and dry. REVIEW OF SYSTEMS Constitutional: No fever, no chills, no night sweats. No weight change. No weakness, fatigue or lethargy. No daytime sleepiness. EENT: No headache. No blurred vision or double vision, no loss of vision. No loss of Hearing, no ringing in the ears, no dizziness. No nasal drainage or congestion. No epistaxis. No sore throat. Lungs: No shortness of breath, cough, no sputum production. No wheezing. Cardiovascular: No chest pain, no lower extremity edema. No palpitations. No paroxysmal nocturnal dyspnea. No orthopnea. No lightheadedness or dizziness. No syncopal episodes. Abdominal: Reports abdominal pain. Denies nausea, denies. No diarrhea. No constipation. No bloody or tarry stools. No loss of appetite. Genitourinary: No dysuria, increased frequency, urgency. No urinary retention. Musculoskeletal: No myalgias. No muscle weakness, no gait dysfunction, no frequent falls. No back pain. No neck pain. Integumentary: No wounds, no lesions. No rash or pruritus. No unusual bruising. No change in hair or nails. Neurologic: No aphasia. No facial droop. No change in mentation. No head injury. No headache. No paralysis. No paresthesia. Psychiatric: No depression. No anxiety. No mood swings. Endocrine: No abnormal blood sugars. No weight change. No excessive sweating or thirst. No cold intolerance. PHYSICAL EXAMINATION Gen: This is a 56-year-old female. She is resting in bed and appears to be comfortable and in no acute distress. HEENT: Head is atraumatic, normocephalic. Pupils equal, round. Sclerae is anicteric. NG tube in place not yet hooked up to suction. NECK: Supple. No JVD. No lymphadenopathy. No thyromegaly. LUNGS: Clear to auscultation. No wheezes or rhonchi. No intercostal retractions. HEART: Regular rate and rhythm. No murmur. ABDOMEN: Soft. Bowel sounds are present. No masses. Dressing midline with dried blood. EXTREMITIES: No pedal edema. No calf tenderness. Dorsalis pedis palpable bilaterally. NEUROLOGICAL: Patient is awake, alert and oriented x3. Cranial nerves 2 through 12 are grossly intact. ASSESSMENT AND PLAN 1. Mechanical small bowel obstruction status post exploratory laparotomy and lysis of adhesions, 05/22. NG tube, epidural for pain control, and Zofran for nausea. Patient is nothing by mouth. Continue IV fluids 0.9 normal saline at 130 mL per hour. 2. Abdominal pain, nausea and vomiting secondary to small bowel obstruction. Continue as in #1. 3. History of hysterectomy and oophorectomy, appendectomy. 4. Prophylaxis. Protonix 40 mg IV daily. 5. COVID-19 testing negative. Patient has been hospitalized during a pandemic. DISCHARGE PLAN Home. Impression and plan of care have been directed as dictated by the signing physic ian. Mona Cortez nurse practitioner acting as scribe for signing physician. Objective - Vital Signs Vital signs: Vital Signs Temp 98.2 F 05/24/21 04:59 Pulse 74 05/24/21 07:38 Resp 16 05/24/21 07:38 BP 102/63 05/24/21 07:38 Pulse Ox 100 05/24/21 07:38 Intake & Output 05/23/21 05/24/21 05/24/21 18:59 06:59 18:59 Intake Total 95.333 Output Total 650 580 500 Balance -650 -484.667 -500 Intake: Intake, IV Titration 95.333 Amount Ropivacaine 250 mg 95.333 Hydromorphone (Pf) 5 mg In Sodium Chloride 0.9% 200 ml @ Per Protocol EPIDURAL .Q0M PRN Rx#: [id number] Output: Gastric Drainage 650 100 500 Urine 480 Other: Voiding Method Indwelling Catheter Indwelling Catheter - Labs CBC & Chem 7: 05/24/21 05:30 05/23/21 04:24 Labs: Abnormal Lab Results - Last 24 Hours (Table) 05/24/21 Range/Units 05:30 RBC 3.57 L (3.80-5.40) m/uL Hgb 10.4 L (11.4-16.0) gm/dL Hct 33.3 L (34.0-46.0) %
[2021-05-25] MEDS: ROPIVACAINE 250 MG, HYDROMORPHONE (PF) 5 MG in SODIUM CHLORIDE 0.9% 200 ML EPIDURAL PRN (02:54)
[2021-05-25] MEDS: SODIUM CHLORIDE 0.9% 1,000 ML IV SCH ×3 (03:09→17:38)
[2021-05-25 04:58] LABS: Basophils % (A) 0 %; Eosinophils # (A) 0.2 k/uL (0-0.7); Eosinophils % (A) 3 %; HCT 30.2 % (34.0-46.0); HGB 9.6 gm/dL (11.4-16.0); Hypochromasia Moderate; Lymphocytes # (A) 1.6 k/uL (1.0-4.8); Lymphocytes % (A) 29 %; MCH 29.7 pg (25.0-35.0); MCHC 31.8 g/dL (31.0-37.0); MCV 93.3 fL (80.0-100.0); Mean Platelet Volume 7.5; Monocytes # (A) 0.6 k/uL (0-1.0); Monocytes % (A) 11 %; Neutrophils % (A) 55 %; Platelet Count 194 k/uL (150-450); RBC 3.24 m/uL (3.80-5.40); RDW 13.4 % (11.5-15.5); WBC 5.5 k/uL (3.8-10.6)
[2021-05-25] MEDS: PANTOPRAZOLE 40 MG/10 ML VIAL IV SCH (08:49)
[2021-05-25] MEDS: HEPARIN SODIUM,PORCINE/PF 5,000 UNIT/0.5 ML SYRINGE SQ SCH ×3 (08:49→23:25)
--- NOTE | 2021-05-25 09:00 | P.PN ---
Progress Note - Text Progress Note Date: 05/25/21 (667) Anesthesia Postop day #3 Status post exploratory laparotomy with epidural day #4 Patient seen and examined. Doing well without complaint. VAS 0-1 out of 10. Denies nausea vomiting or pruritus. Ropivacaine [0.1%] with [Dilaudid 20 mcg/mL] at 8 mL an hour. Objective: Vital signs reviewed Lungs: Good chest excursion Abdomen: Appears nondistended Neuro: [No apparent motor block]. [Sensory within normal limits]. Assessment: Status post exploratory laparotomy postop day #3 Plan: Continue current care with your medical management. Order written for discontinued epidural. We'll hold heparin subcu 6 hours prior to removal. Discussed with nurse Mckoy
[2021-05-25] MEDS ORDERED: HYDROcodone/APAP 7.5-325MG 1 EACH TAB PO PRN (09:08)
--- NOTE | 2021-05-25 09:10 | P.PN ---
Subjective Progress Note Date: 05/25/21 Principal diagnosis: Small bowel obstruction Patient doing well today. No bowel function. White blood cell count 5.5, hemoglobin 9.6. Minimal pain. Objective - Vital Signs Vital signs: Vital Signs Temp 98.4 F 05/25/21 04:16 Pulse 71 05/25/21 04:16 Resp 18 05/25/21 04:16 BP 103/54 05/25/21 04:16 Pulse Ox 99 05/25/21 04:16 Intake & Output 05/24/21 05/25/21 05/25/21 18:59 06:59 18:59 Intake Total 1560 1688.667 Output Total 500 900 Balance 1060 788.667 Intake: Intake, IV Titration 1560 1688.667 Amount Ropivacaine 250 mg 188.667 Hydromorphone (Pf) 5 mg In Sodium Chloride 0.9% 200 ml @ Per Protocol EPIDURAL .Q0M PRN Rx#: [id number] Sodium Chloride 0.9% 1, 1560 1500 000 ml @ 130 mls/hr IV . Q7H42M [facility] Rx#:[id number] Output: Gastric Drainage 500 300 Urine 600 Other: Voiding Method Indwelling Catheter # Emeses 0 - Exam Abdomen: Soft, minimal distention, minimal tenderness, some sanguinous drainage on the dressings, when dressings removed no active bleeding seen - Labs CBC & Chem 7: 05/25/21 04:13 05/23/21 04:24 Labs: Abnormal Lab Results - Last 24 Hours (Table) 05/25/21 Range/Units 04:13 RBC 3.24 L (3.80-5.40) m/uL Hgb 9.6 L (11.4-16.0) gm/dL Hct 30.2 L (34.0-46.0) % Assessment and Plan (1) Small bowel obstruction Narrative/Plan: Patient doing well today. Remove epidural and Hurt catheter. Ambulate. Keep nasogastric tube in place. Current Visit: Yes Status: Acute Code(s): K56.609 - UNSP INTESTNL OBST, UNSP TO PARTIAL VERSUS COMPLETE OBST SNOMED Code(s): 750619132
--- NOTE | 2021-05-25 10:33 | P.PN ---
Subjective Progress Note Date: 05/25/21 HISTORY OF PRESENT ILLNESS This is a 56-year-old female patient of Dr. Fuentes with past medical history of [address] Henry, no polyps. She has history of hyst erectomy and oophorectomy secondary to pain and varicose veins as well as appendectomy was done at that time. Patient states she developed pain in her abdomen on Wednesday AT 11 P.M. in the lower quadrants it was quite severe. She had remained lettuce previous and thought she may have some food poisoning. She continued to have pain and developed nausea and vomiting almost every hour. She denies having any blood in her stools, no blood in her emesis. She denies any weight loss. Patient came into [facility] emergency center for evaluation and found to be afebrile, heart rate 103, but pressure 92/69, pulse ox 100% on room air. WBC 10.7, hemoglobin 15.2, platelet count 385. INR 1.0. Chloride 94 otherwise electrolytes and renal function normal. Blood sugar 155. Calcium 11.1. Total bilirubin 0.8 and liver function tests normal. Troponin was negative. Albumin 5. Lipase 121. Rotavirus PCR not detected. Urinalysis was clear with leukoesterase moderate, WBC is 2. CAT scan of the abdomen and pelvis with contrast revealed dilated mid and proximal small bowel suggestive of mechanical mid small bowel obstruction. Transition point not identified. Small amount of free fluid in the right paracolic gutter of uncertain significance. Chest x-ray reveals good positioning of the NG tube. Patient has been seen by general surgery and is scheduled for exploratory lapar otomy and lysis of adhesions today. 05/23: Yesterday, patient underwent exploratory laparotomy and lysis of adhesion with Dr. Cannon. She has been afebrile, heart rate 69, blood pressure 97/60, pulse ox 100% on 2 L nasal cannula. Repeat blood work reveals WBC 7.6, hemoglobin 0.1. Platelet count 242. Electrolytes normal. Anion gap 9.3. Creatinine 0.6. Blood sugar 90. Calcium 8.2. Liver function tests normal.patient has epidural catheter in place for pain control. Patient is nothing by mouth. Patient states her pain is a #3/10. No nausea or vomiting. No bowel movement. Discharge plan is for return home. 05/24: Patient was examined at the bedside. Patient is postop day 1 for an exploratory lap. NG tube is still in place. Remains nothing by mouth. Pain has improved at 2 out of 10 at this time. Patient has no flatulence or bowel movement. Bowel sounds are hypoactive. Abdomen is tender and soft. Patient was upset this morning and tearful due to her condition. After discussion, patient mood had improved. Patient was up to a chair earlier this morning however epidural is still in place. Indwelling catheter and place draining clear fluid. Incentive spirometer use encouraged. Incision is clean and dry. 05/25: Patient examined at the bedside. NG tube still in place. Patient still has not had any bowel movement or flatulence. She remains nothing by mouth. Yesterday patient was in in the freeman and up to this chair for multiple hours. Patient does have some sanguinous drainage to the distal portion of her incision site. Incision is well approximated and intact. Dressing is requested to be changed. Discussed with patient to utilize abdominal binder and pillow for splinting while transferring. Bowel sounds are hypoactive. Incentive Brown were encouraged. NG tube has 300 mL of dark blood tinged output. REVIEW OF SYSTEMS Constitutional: No fever, no chills, no night sweats. No weight change. No weakness, fatigue or lethargy. No daytime sleepiness. EENT: No headache. No blurred vision or double vision, no loss of vision. No loss of Hearing, no ringing in the ears, no dizziness. No nasal drainage or congestion. No epistaxis. No sore throat. Lungs: No shortness of breath, cough, no sputum production. No wheezing. Cardiovascular: No chest pain, no lower extremity edema. No palpitations. No paroxysmal nocturnal dyspnea. No orthopnea. No lightheadedness or dizziness. No syncopal episodes. Abdominal: Reports abdominal pain. Denies nausea, denies. No diarrhea. No constipation. No bloody or tarry stools. No loss of appetite. Genitourinary: No dysuria, increased frequency, urgency. No urinary retention. Musculoskeletal: No myalgias. No muscle weakness, no gait dysfunction, no frequ ent falls. No back pain. No neck pain. Integumentary: No wounds, no lesions. No rash or pruritus. No unusual bruising. No change in hair or nails. Neurologic: No aphasia. No facial droop. No change in mentation. No head injury. No headache. No paralysis. No paresthesia. Psychiatric: No depression. No anxiety. No mood swings. Endocrine: No abnormal blood sugars. No weight change. No excessive sweating or thirst. No cold intolerance. PHYSICAL EXAMINATION Gen: This is a 56-year-old female. She is resting in bed and appears to be comfortable and in no acute distress. HEENT: Head is atraumatic, normocephalic. Pupils equal, round. Sclerae is anicteric. NG tube in place not yet hooked up to suction. NECK: Supple. No JVD. No lymphadenopathy. No thyromegaly. LUNGS: Clear to auscultation. No wheezes or rhonchi. No intercostal retractions. HEART: Regular rate and rhythm. No murmur. ABDOMEN: Soft. Bowel sounds are present. No masses. Dressing midline with dried blood. EXTREMITIES: No pedal edema. No calf tenderness. Dorsalis pedis palpable bilaterally. NEUROLOGICAL: Patient is awake, alert and oriented x3. Cranial nerves 2 through 12 are grossly intact. ASSESSMENT AND PLAN 1. Mechanical small bowel obstruction status post exploratory laparotomy and lysis of adhesions, 05/22. NG tube, epidural for pain control, and Zofran for nausea. Patient is nothing by mouth. Continue IV fluids 0.9 normal saline at 130 mL per hour. Abdominal binder, abdominal splinting with transferring and activity. 2. Abdominal pain, nausea and vomiting secondary to small bowel obstruction. Continue as in #1. 3. History of hysterectomy and oophorectomy, appendectomy. 4. Prophylaxis. Protonix 40 mg IV daily. 5. COVID-19 testing negative. Patient has been hospitalized during a pandemic. DISCHARGE PLAN Home. Impression and plan of care have been directed as dictated by the signing physician. Mona Cortez nurse practitioner acting as scribe for signing physician. Objective - Vital Signs Vital signs: Vital Signs Temp 98.4 F 05/25/21 04:16 Pulse 71 05/25/21 04:16 Resp 18 05/25/21 04:16 BP 103/54 05/25/21 04:16 Pulse Ox 99 05/25/21 04:16 Intake & Output 05/24/21 05/25/21 05/25/21 18:59 06:59 18:59 Intake Total 1560 1688.667 Output Total 500 900 Balance 1060 788.667 Intake: Intake, IV Titration 1560 1688.667 Amount Ropivacaine 250 mg 188.667 Hydromorphone (Pf) 5 mg In Sodium Chloride 0.9% 200 ml @ Per Protocol EPIDURAL .Q0M PRN Rx#: [id number] Sodium Chloride 0.9% 1, 1560 1500 000 ml @ 130 mls/hr IV . Q7H42M [facility] Rx#:[id number] Output: Gastric Drainage 500 300 Urine 600 Other: Voiding Method Indwelling Catheter # Emeses 0 - Labs CBC & Chem 7: 05/25/21 04:13 05/23/21 04:24 Labs: Abnormal Lab Results - Last 24 Hours (Table) 05/25/21 Range/Units 04:13 RBC 3.24 L (3.80-5.40) m/uL Hgb 9.6 L (11.4-16.0) gm/dL Hct 30.2 L (34.0-46.0) %
[2021-05-25 10:38] LABS: African American GFR (CKD) 119.3 (60.0-200.0); Anion Gap 10.8 mmol/L (10.00-18.00); BUN/Creat Ratio 21.97 Ratio (12.00-20.00); Blood Urea Nitrogen 12.5 mg/dL (9.0-27.0); Calcium 8.1 mg/dL (8.7-10.3); Carbon Dioxide 19.3 mmol/L (20.0-27.5); Potassium 3.9 mmol/L (3.5-5.5)
[2021-05-25] MEDS: KETOROLAC 30 MG/ML 1 ML VIAL IVP SCH ×3 (12:36→23:25)
[2021-05-26] MEDS: SODIUM CHLORIDE 0.9% 1,000 ML IV SCH ×2 (00:49→15:14)
[2021-05-26] MEDS: KETOROLAC 30 MG/ML 1 ML VIAL IVP SCH ×4 (05:13→23:32)
[2021-05-26] MEDS: ONDANSETRON 4 MG/2 ML VIAL IVP PRN (07:31)
[2021-05-26] MEDS: PANTOPRAZOLE 40 MG/10 ML VIAL IV SCH (07:31)
[2021-05-26] MEDS: HEPARIN SODIUM,PORCINE/PF 5,000 UNIT/0.5 ML SYRINGE SQ SCH ×3 (07:31→23:32)
[2021-05-26 08:43] LABS: HCT 36.6 % (34.0-46.0); HGB 11.3 gm/dL (11.4-16.0); Hypochromasia Moderate; MCH 28.5 pg (25.0-35.0); MCHC 30.8 g/dL (31.0-37.0); MCV 92.7 fL (80.0-100.0); Mean Platelet Volume 7.6; Platelet Count 271 k/uL (150-450); RBC 3.95 m/uL (3.80-5.40); RDW 13.7 % (11.5-15.5); WBC 4.5 k/uL (3.8-10.6)
--- NOTE | 2021-05-26 12:28 | P.PN ---
Subjective Progress Note Date: 05/26/21 HISTORY OF PRESENT ILLNESS This is a 56-year-old female patient of Dr. Fuentes with past medical history of [address] Henry, no polyps. She has history of hys terectomy and oophorectomy secondary to pain and varicose veins as well as appendectomy was done at that time. Patient states she developed pain in her abdomen on Wednesday AT 11 P.M. in the lower quadrants it was quite severe. She had remained lettuce previous and thought she may have some food poisoning. She continued to have pain and developed nausea and vomiting almost every hour. She denies having any blood in her stools, no blood in her emesis. She denies any weight loss. Patient came into [facility] emergency center for evaluation and found to be afebrile, heart rate 103, but pressure 92/69, pulse ox 100% on room air. WBC 10.7, hemoglobin 15.2, platelet count 385. INR 1.0. Chloride 94 otherwise electrolytes and renal function normal. Blood sugar 155. Calcium 11.1. Total bilirubin 0.8 and liver function tests normal. Troponin was negative. Albumin 5. Lipase 121. Rotavirus PCR not detected. Urinalysis was clear with leukoesterase moderate, WBC is 2. CAT scan of the abdomen and pelvis with contrast revealed dilated mid and proximal small bowel suggestive of mechanical mid small bowel obstruction. Transition point not identified. Small amount of free fluid in the right paracolic gutter of uncertain significance. Chest x-ray reveals good positioning of the NG tube. Patient has been seen by general surgery and is scheduled for exploratory lapa rotomy and lysis of adhesions today. 05/23: Yesterday, patient underwent exploratory laparotomy and lysis of adhesion with Dr. Cannon. She has been afebrile, heart rate 69, blood pressure 97/60, pulse ox 100% on 2 L nasal cannula. Repeat blood work reveals WBC 7.6, hemoglobin 0.1. Platelet count 242. Electrolytes normal. Anion gap 9.3. Creatinine 0.6. Blood sugar 90. Calcium 8.2. Liver function tests normal.patient has epidural catheter in place for pain control. Patient is nothing by mouth. Patient states her pain is a #3/10. No nausea or vomiting. No bowel movement. Discharge plan is for return home. 05/24: Patient was examined at the bedside. Patient is postop day 1 for an exploratory lap. NG tube is still in place. Remains nothing by mouth. Pain has improved at 2 out of 10 at this time. Patient has no flatulence or bowel movement. Bowel sounds are hypoactive. Abdomen is tender and soft. Patient was upset this morning and tearful due to her condition. After discussion, patient mood had improved. Patient was up to a chair earlier this morning however epidural is still in place. Indwelling catheter and place draining clear fluid. Incentive spirometer use encouraged. Incision is clean and dry. 05/25: Patient examined at the bedside. NG tube still in place. Patient still has not had any bowel movement or flatulence. She remains nothing by mouth. Yesterday patient was in in the freeman and up to this chair for multiple hours. Patient does have some sanguinous drainage to the distal portion of her incision site. Incision is well approximated and intact. Dressing is requested to be changed. Discussed with patient to utilize abdominal binder and pillow for splinting while transferring. Bowel sounds are hypoactive. Incentive Brown were encouraged. NG tube has 300 mL of dark blood tinged output. 05/26: Patient is seen today on the [facility] floor. Patient states that she's passed gas at 7:30 this morning but no bowel movement. She has abdominal binder in place which is more comfortable to her abdomen for her. She does have bowel sounds present. Diet Has been advanced to clear liquids for lunch. WBC 4.5, hemoglobin 1.3, platelet count 271. Patient has been afebrile, heart rate 78, blood pressure 136/78 and pulse ox 98% on room air. Hurt catheter was discontinued yesterday. REVIEW OF SYSTEMS Constitutional: No fever, no chills, no night sweats. No weight change. No weakness, fatigue or lethargy. No daytime sleepiness. EENT: No headache. No blurred vision or double vision, no loss of vision. No loss of Hearing, no ringing in the ears, no dizziness. No nasal drainage or congestion. No epistaxis. No sore throat. Lungs: No shortness of breath, cough, no sputum production. No wheezing. Cardiovascular: No chest pain, no lower extremity edema. No palpitations. No paroxysmal nocturnal dyspnea. No orthopnea. No lightheadedness or dizziness. No syncopal episodes. Abdominal: Reports abdominal pain. Denies nausea, denies. No diarrhea. No constipation. No bloody or tarry stools. No loss of appetite. Genitourinary: No dysuria, increased frequency, urgency. No urinary retention. Musculoskeletal: No myalgias. No muscle weakness, no gait dysfunction, no frequent falls. No back pain. No neck pain. Integumentary: No wounds, no lesions. No rash or pruritus. No unusual bruising. No change in hair or nails. Neurologic: No aphasia. No facial droop. No change in mentation. No head injury. No headache. No paralysis. No paresthesia. Psychiatric: No depression. No anxiety. No mood swings. Endocrine: No abnormal blood sugars. No weight change. No excessive sweating or thirst. No cold intolerance. PHYSICAL EXAMINATION Gen: This is a 56-year-old female. She is resting in a recliner and appears to be comfortable and in no acute distress. HEENT: Head is atraumatic, normocephalic. Pupils equal, round. Sclerae is anicte alex. NECK: Supple. No JVD. No lymphadenopathy. No thyromegaly. LUNGS: Clear to auscultation. No wheezes or rhonchi. No intercostal retractions. HEART: Regular rate and rhythm. No murmur. ABDOMEN: Soft. Bowel sounds are present. No masses. Dressing midline with dried blood. I'll binder in place. EXTREMITIES: No pedal edema. No calf tenderness. Dorsalis pedis palpable bilaterally. NEUROLOGICAL: Patient is awake, alert and oriented x3. Cranial nerves 2 through 12 are grossly intact. ASSESSMENT AND PLAN 1. Mechanical small bowel obstruction status post exploratory laparotomy and lysis of adhesions, 05/22. Zofran for nausea. It to clear liquids, IV fluids discontinued, Abdominal binder, abdominal splinting with transferring and activity. 2. Abdominal pain, nausea and vomiting secondary to small bowel obstruction. Continue as in #1. 3. History of hysterectomy and oophorectomy, appendectomy. 4. Prophylaxis. Protonix 40 mg IV daily. 5. COVID-19 testing negative. Patient has been hospitalized during a pandemic. DISCHARGE PLAN Home. Impression and plan of care have been directed as dictated by the signing physician. Eli Price nurse practitioner acting as scribe for signing physician. Objective - Vital Signs Vital signs: Vital Signs Temp 97.9 F 05/26/21 04:51 Pulse 78 05/26/21 04:51 Resp 16 05/26/21 04:51 BP 136/78 05/26/21 04:51 Pulse Ox 98 05/26/21 04:51 Intake & Output 05/25/21 05/26/21 05/26/21 18:59 06:59 18:59 Intake Total 460.8 1500 Output Total 800 Balance -339.2 1500 Intake: Intake, IV Titration 60.8 1500 Amount Ropivacaine 250 mg 60.8 Hydromorphone (Pf) 5 mg In Sodium Chloride 0.9% 200 ml @ Per Protocol EPIDURAL .Q0M PRN Rx#: [id number] Sodium Chloride 0.9% 1, 1500 000 ml @ 130 mls/hr IV . Q7H42M [facility] Rx#:[id number] Oral 400 Output: Gastric Drainage 800 Other: Voiding Method Toilet Toilet # Voids 1 3 - Labs CBC & Chem 7: 05/26/21 08:09 05/25/21 04:13 Labs: Abnormal Lab Results - Last 24 Hours (Table) 05/25/21 05/26/21 Range/Units 04:13 08:09 Hgb 11.3 L (11.4-16.0) gm/dL MCHC 30.8 L (31.0-37.0) g/dL Chloride 112 H (96-109) mmol/L Carbon Dioxide 19.3 L (20.0-27.5) mmol/L BUN/Creatinine Ratio 21.97 H (12.00-20.00) Ratio Glucose 66 L (70-110) mg/dL Calcium 8.1 L (8.7-10.3) mg/dL
--- NOTE | 2021-05-26 12:34 | P.PN ---
Subjective Progress Note Date: 05/26/21 CHIEF COMPLAINT: Small bowel obstruction HISTORY OF PRESENT ILLNESS: Patient is postop day #4 status post exploratory laparotomy with lysis of adhesion for small bowel obstruction secondary to adhesive band. Patient reports minimal abdominal pain. She is having flatus that started this morning. Denies any bowel movement. Denies any difficulty urinating. Denies any nausea vomiting. Has NG tube in place. Afebrile. WBC 4.5 hemoglobin 11.3 PHYSICAL EXAM: VITAL SIGNS: Reviewed. GENERAL: Well-developed in no acute distress. HEENT: No sclera icterus. Extraocular movements grossly intact. Moist buccal mucosa. Head is atraumatic, normocephalic. ABDOMEN: Soft. Nondistended. Incision site clean dry and intact NEUROLOGIC: Alert and oriented. Cranial nerves II through XII grossly intact. ASSESSMENT: 1. Small bowel obstruction secondary to adhesive band status post exploratory laparotomy with lysis of adhesion PLAN: -Discontinue NG tube -Start clear liquid diet -Encourage patient to ambulate -Encourage patient to use incentive spirometer -Continue GI prophylaxis Protonix and DVT prophylaxis subcu heparin Physician Bilingual Executive Assistant note has been reviewed by physician. Signing provider agrees with the documented findings, assessment, and plan of care. Objective - Vital Signs Vital signs: Vital Signs Temp 97.9 F 05/26/21 04:51 Pulse 78 05/26/21 04:51 Resp 16 05/26/21 04:51 BP 136/78 05/26/21 04:51 Pulse Ox 98 05/26/21 04:51 Intake & Output 05/25/21 05/26/21 05/26/21 18:59 06:59 18:59 Intake Total 460.8 1500 Output Total 800 Balance -339.2 1500 Intake: Intake, IV Titration 60.8 1500 Amount Ropivacaine 250 mg 60.8 Hydromorphone (Pf) 5 mg In Sodium Chloride 0.9% 200 ml @ Per Protocol EPIDURAL .Q0M PRN Rx#: [id number] Sodium Chloride 0.9% 1, 1500 000 ml @ 130 mls/hr IV . Q7H42M NAGA Rx#:[id number] Oral 400 Output: Gastric Drainage 800 Other: Voiding Method Toilet Toilet Toilet # Voids 1 3 - Labs CBC & Chem 7: 05/26/21 08:09 05/25/21 04:13 Labs: Abnormal Lab Results - Last 24 Hours (Table) 05/26/21 Range/Units 08:09 Hgb 11.3 L (11.4-16.0) gm/dL MCHC 30.8 L (31.0-37.0) g/dL
[2021-05-26 20:57] LABS: Glucose,Whole Blood 132 mg/dL (75-99)
[2021-05-27] MEDS: KETOROLAC 30 MG/ML 1 ML VIAL IVP SCH ×2 (05:22→12:34)
[2021-05-27] MEDS: PANTOPRAZOLE 40 MG/10 ML VIAL IV SCH (08:00)
[2021-05-27] MEDS: HEPARIN SODIUM,PORCINE/PF 5,000 UNIT/0.5 ML SYRINGE SQ SCH (08:00)
--- NOTE | 2021-05-27 12:00 | P.PN ---
Subjective Progress Note Date: 05/27/21 HISTORY OF PRESENT ILLNESS This is a 56-year-old female patient of Dr. Fuentes with past medical history of [address] Henry, no polyps. She has history of hys terectomy and oophorectomy secondary to pain and varicose veins as well as appendectomy was done at that time. Patient states she developed pain in her abdomen on Wednesday AT 11 P.M. in the lower quadrants it was quite severe. She had remained lettuce previous and thought she may have some food poisoning. She continued to have pain and developed nausea and vomiting almost every hour. She denies having any blood in her stools, no blood in her emesis. She denies any weight loss. Patient came into [facility] emergency center for evaluation and found to be afebrile, heart rate 103, but pressure 92/69, pulse ox 100% on room air. WBC 10.7, hemoglobin 15.2, platelet count 385. INR 1.0. Chloride 94 otherwise electrolytes and renal function normal. Blood sugar 155. Calcium 11.1. Total bilirubin 0.8 and liver function tests normal. Troponin was negative. Albumin 5. Lipase 121. Rotavirus PCR not detected. Urinalysis was clear with leukoesterase moderate, WBC is 2. CAT scan of the abdomen and pelvis with contrast revealed dilated mid and proximal small bowel suggestive of mechanical mid small bowel obstruction. Transition point not identified. Small amount of free fluid in the right paracolic gutter of uncertain significance. Chest x-ray reveals good positioning of the NG tube. Patient has been seen by general surgery and is scheduled for exploratory lapa rotomy and lysis of adhesions today. 05/23: Yesterday, patient underwent exploratory laparotomy and lysis of adhesion with Dr. Cannon. She has been afebrile, heart rate 69, blood pressure 97/60, pulse ox 100% on 2 L nasal cannula. Repeat blood work reveals WBC 7.6, hemoglobin 0.1. Platelet count 242. Electrolytes normal. Anion gap 9.3. Creatinine 0.6. Blood sugar 90. Calcium 8.2. Liver function tests normal.patient has epidural catheter in place for pain control. Patient is nothing by mouth. Patient states her pain is a #3/10. No nausea or vomiting. No bowel movement. Discharge plan is for return home. 05/24: Patient was examined at the bedside. Patient is postop day 1 for an exploratory lap. NG tube is still in place. Remains nothing by mouth. Pain has improved at 2 out of 10 at this time. Patient has no flatulence or bowel movement. Bowel sounds are hypoactive. Abdomen is tender and soft. Patient was upset this morning and tearful due to her condition. After discussion, patient mood had improved. Patient was up to a chair earlier this morning however epidural is still in place. Indwelling catheter and place draining clear fluid. Incentive spirometer use encouraged. Incision is clean and dry. 05/25: Patient examined at the bedside. NG tube still in place. Patient still has not had any bowel movement or flatulence. She remains nothing by mouth. Yesterday patient was in in the freeman and up to this chair for multiple hours. Patient does have some sanguinous drainage to the distal portion of her incision site. Incision is well approximated and intact. Dressing is requested to be changed. Discussed with patient to utilize abdominal binder and pillow for splinting while transferring. Bowel sounds are hypoactive. Incentive Brown were encouraged. NG tube has 300 mL of dark blood tinged output. 05/26: Patient is seen today on the [facility] floor. Patient states that she's passed gas at 7:30 this morning but no bowel movement. She has abdominal binder in place which is more comfortable to her abdomen for her. She does have bowel sounds present. Diet Has been advanced to clear liquids for lunch. WBC 4.5, hemoglobin 1.3, platelet count 271. Patient has been afebrile, heart rate 78, blood pressure 136/78 and pulse ox 98% on room air. Hurt catheter was discontinued yesterday. 05/27: Patient remains afebrile, heart rate 72, blood pressure 132/86, pulse ox 98% on room air. She took a shower this morning is feeling much better. NG tube is out and she is tolerating clear liquid diet. She is passing a lot of ga s but has not had a bowel movement. Patient's discharge plan is home with her adult son to assist. Anticipate possible discharge home later today. Medication reconciliation will be reviewed. REVIEW OF SYSTEMS Constitutional: No fever, no chills, no night sweats. No weight change. No weakness, fatigue or lethargy. No daytime sleepiness. EENT: No headache. No blurred vision or double vision, no loss of vision. No loss of Hearing, no ringing in the ears, no dizziness. No nasal drainage or congestion. No epistaxis. No sore throat. Lungs: No shortness of breath, cough, no sputum production. No wheezing. Cardiovascular: No chest pain, no lower extremity edema. No palpitations. No paroxysmal nocturnal dyspnea. No orthopnea. No lightheadedness or dizziness. No syncopal episodes. Abdominal: Reports abdominal pain. Denies nausea, denies. No diarrhea. No constipation. No bloody or tarry stools. No loss of appetite. Genitourinary: No dysuria, increased frequency, urgency. No urinary retention. Musculoskeletal: No myalgias. No muscle weakness, no gait dysfunction, no frequent falls. No back pain. No neck pain. Integumentary: No wounds, no lesions. No rash or pruritus. No unusual bruising. No change in hair or nails. Neurologic: No aphasia. No facial droop. No change in mentation. No head injury. No headache. No paralysis. No paresthesia. Psychiatric: No depression. No anxiety. No mood swings. Endocrine: No abnormal blood sugars. No weight change. No excessive sweating or thirst. No cold intolerance. PHYSICAL EXAMINATION Gen: This is a 56-year-old female. She is resting in a recliner and appears to be comfortable and in no acute distress. HEENT: Head is atraumatic, normocephalic. Pupils equal, round. Sclerae is anicteric. NECK: Supple. No JVD. No lymphadenopathy. No thyromegaly. LUNGS: Clear to auscultation. No wheezes or rhonchi. No intercostal retractions. HEART: Regular rate and rhythm. No murmur. ABDOMEN: Soft. Bowel sounds are present. No masses. Dressing midline with dried blood. Abdominal binder in place. EXTREMITIES: No pedal edema. No calf tenderness. Dorsalis pedis palpable bilaterally. NEUROLOGICAL: Patient is awake, alert and oriented x3. Cranial nerves 2 through 12 are grossly intact. ASSESSMENT AND PLAN 1. Mechanical small bowel obstruction status post exploratory laparotomy and lysis of adhesions, 05/22. Zofran for nausea. Tolerating clear liquids, IV fluids discontinued, Abdominal binder during the day, abdominal splinting with transferring and activity. 2. Abdominal pain, nausea and vomiting secondary to small bowel obstruction. Continue as in #1. 3. History of hysterectomy and oophorectomy, appendectomy. 4. Prophylaxis. Protonix 40 mg IV daily. 5. COVID-19 testing negative. Patient has been hospitalized during a pandemic. DISCHARGE PLAN Home. Impression and plan of care have been directed as dictated by the signing physician. Eli Price nurse practitioner acting as scribe for signing physician. Objective - Vital Signs Vital signs: Vital Signs Temp 98.6 F 05/27/21 05:00 Pulse 72 05/27/21 05:00 Resp 20 05/27/21 05:00 BP 132/86 05/27/21 05:00 Pulse Ox 98 05/27/21 05:00 Intake & Output 05/26/21 05/27/21 05/27/21 18:59 06:59 18:59 Intake Total 600 100 Output Total 240 Balance 600 -140 Intake: Oral 600 100 Output: Urine 240 Other: Voiding Method Toilet Toilet # Voids 3 3 - Labs CBC & Chem 7: 05/26/21 08:09 05/25/21 04:13 Labs: Abnormal Lab Results - Last 24 Hours (Table) 05/26/21 05/26/21 Range/Units 08:09 20:49 Hgb 11.3 L (11.4-16.0) gm/dL MCHC 30.8 L (31.0-37.0) g/dL POC Glucose (mg/dL) 132 H (75-99) mg/dL
[2021-05-27 12:26] VITALS: BP 109/58; PULSE 71; RESP 17; TEMP 97.5
--- NOTE | 2021-05-27 13:32 | P.PN ---
Subjective Progress Note Date: 05/27/21 CHIEF COMPLAINT: Small bowel obstruction HISTORY OF PRESENT ILLNESS: Patient is postop day #5 status post exploratory laparotomy with lysis of adhesion for small bowel obstruction secondary to adhesive band. Patient reports minimal abdominal pain. Her pain is controlled with the Toradol. She is having flatus. No bowel movement. She is tolerating clear liquid diet. Afebrile. PHYSICAL EXAM: VITAL SIGNS: Reviewed. GENERAL: Well-developed in no acute distress. HEENT: No sclera icterus. Extraocular movements grossly intact. Moist buccal mucosa. Head is atraumatic, normocephalic. ABDOMEN: Soft. Nondistended. Incision site clean dry and intact NEUROLOGIC: Alert and oriented. Cranial nerves II through XII grossly intact. ASSESSMENT: 1. Small bowel obstruction secondary to adhesive band status post exploratory laparotomy with lysis of adhesion PLAN: -Advance diet to full liquids -Patient can be discharged from surgical standpoint -Encourage patient to ambulate -Encourage patient to use incentive spirometer -Continue GI prophylaxis Protonix and DVT prophylaxis subcu heparin Physician Telecommunications Consultant note has been reviewed by physician. Signing provider agrees with the documented findings, assessment, and plan of care. Objective - Vital Signs Vital signs: Vital Signs Temp 97.5 F L 05/27/21 12:25 Pulse 71 05/27/21 12:25 Resp 17 05/27/21 12:25 BP 109/58 05/27/21 12:25 Pulse Ox 98 05/27/21 12:25 Intake & Output 05/26/21 05/27/21 05/27/21 18:59 06:59 18:59 Intake Total 600 100 Output Total 240 Balance 600 -140 Intake: Oral 600 100 Output: Urine 240 Other: Voiding Method Toilet Toilet # Voids 3 3 - Labs CBC & Chem 7: 05/26/21 08:09 05/25/21 04:13 Labs: Abnormal Lab Results - Last 24 Hours (Table) 05/26/21 Range/Units 20:49 POC Glucose (mg/dL) 132 H (75-99) mg/dL
--- NOTE | 2021-05-27 13:39 | P.DS ---
Providers Date of admission: 05/22/21 04:28 Expected date of discharge: 05/27/21 Attending physician: Terra Fuentes Consults: 05/22/21 04:28 Consult Physician Routine Consulting Provider: Arnulfo Cannon Consult Reason/Comments: sbo Do you want consulting provider notified?: Yes Primary care physician: Terra Fuentes [facility] Course: HISTORY OF PRESENT ILLNESS This is a 56-year-old female patient of Dr. Fuentes with past medical history of [address] Henry, no polyps. She has history of hysterectomy and oophorectomy secondary to pain and varicose veins as well as appendectomy was done at that time. Patient states she developed pain in her abdomen on Wednesday AT 11 P.M. in the lower quadrants it was quite severe. She had remained lettuce previous and thought she may have some food poisoning. She continued to have pain and developed nausea and vomiting almost every hour. She denies having any blood in her stools, no blood in her emesis. She denies any weight loss. Patient came into [facility] emergency center for evaluation and found to be afebrile, heart rate 103, but pressure 92/69, pulse ox 100% on room air. WBC 10.7, hemoglobin 15.2, platelet count 385. INR 1.0. Chloride 94 otherwise electrolytes and renal function normal. Blood sugar 155. Calcium 11.1. Total bilirubin 0.8 and liver function tests normal. Troponin was negative. Albumin 5. Lipase 121. Rotavirus PCR not detected. Urinalysis was clear with leukoesterase moderate, WBC is 2. CAT scan of the abdomen and pelvis with contrast revealed dilated mid and proximal small bowel suggestive of mechanical mid small bowel obstruction. Transition point not identified. Small amount of free fluid in the right paracolic gutter of uncertain significance. Chest x-ray reveals good positioning of the NG tube. Patient has been seen by general surgery and is scheduled for exploratory laparotomy and lysis of adhesions today. 05/23: Yesterday, patient underwent exploratory laparotomy and lysis of adhesion with Dr. Cannon. She has been afebrile, heart rate 69, blood pressure 97/60, pulse ox 100% on 2 L nasal cannula. Repeat blood work reveals WBC 7.6, hemoglobin 0.1. Platelet count 242. Electrolytes normal. Anion gap 9.3. Creatinine 0.6. Blood sugar 90. Calcium 8.2. Liver function tests normal.patient has epidural catheter in place for pain control. Patient is nothing by mouth. Patient states her pain is a #3/10. No nausea or vomiting. No bowel movement. Discharge plan is for return home. 05/24: Patient was examined at the bedside. Patient is postop day 1 for an exploratory lap. NG tube is still in place. Remains nothing by mouth. Pain has improved at 2 out of 10 at this time. Patient has no flatulence or bowel movement. Bowel sounds are hypoactive. Abdomen is tender and soft. Patient was upset this morning and tearful due to her condition. After discussion, patient mood had improved. Patient was up to a chair earlier this morning however epidural is still in place. Indwelling catheter and place draining clear fluid. Incentive spirometer use encouraged. Incision is clean and dry. 05/25: Patient examined at the bedside. NG tube still in place. Patient still has not had any bowel movement or flatulence. She remains nothing by mouth. Yesterday patient was in in the freeman and up to this chair for multiple hours. Patient does have some sanguinous drainage to the distal portion of her incision site. Incision is well approximated and intact. Dressing is requested to be changed. Discussed with patient to utilize abdominal binder and pillow for splinting while transferring. Bowel sounds are hypoactive. Incentive Brown were encouraged. NG tube has 300 mL of dark blood tinged output. 05/26: Patient is seen today on the [facility] floor. Patient states that she's passed gas at 7:30 this morning but no bowel movement. She has abdominal binder in place which is more comfortable to her abdomen for her. She does have bowel sounds present. Diet Has been advanced to clear liquids for lunch. WBC 4.5, hemoglobin 1.3, platelet count 271. Patient has been afebrile, heart rate 78, blood pressure 136/78 and pulse ox 98% on room air. Hurt catheter was discontinued yesterday. 05/27: Patient remains afebrile, heart rate 72, blood pressure 132/86, pulse ox 98% on room air. She took a shower this morning is feeling much better. NG tube is out and she is tolerating clear liquid diet. She is passing a lot of gas but has not had a bowel movement. Patient's discharge plan is home with her adult son to assist. Anticipate possible discharge home later today. Medication reconciliation will be reviewed. DISCHARGE DIAGNOSES 1. Mechanical small bowel obstruction status post exploratory laparotomy and lysis of adhesions, 05/22. 2. Abdominal pain, nausea and vomiting secondary to small bowel obstruction. 3. History of hysterectomy and oophorectomy, appendectomy. 4. COVID-19 testing negative. Patient has been hospitalized during a pandemic. DISCHARGE PLAN Home. Greater than 35 minutes was utilized and coordinating patient's discharge. Impression and plan of care have been directed as dictated by the signing physician. Eli Price nurse practitioner acting as scribe for signing phys ician. Patient Condition at Discharge: Fair Plan - Discharge Summary Discharge Rx Participant: No New Discharge Prescriptions: New Ibuprofen [Motrin] 600 mg PO Q8HR PRN #30 tab PRN Reason: Pain Acetaminophen Tab [Tylenol Tab] 650 mg PO Q4H PRN #30 tablet PRN Reason: Pain Continue Multivitamin [Multiple Vitamins] 1 tab PO DAILY Cholecalciferol (Vitamin D3) [Vitamin D3 (3000 Iu)] 75 mcg PO DAILY Discharge Medication List Multivitamin [Multiple Vitamins] 1 tab PO DAILY 11/23/16 [History] Cholecalciferol (Vitamin D3) [Vitamin D3 (3000 Iu)] 75 mcg PO DAILY 05/22/21 [History] Acetaminophen Tab [Tylenol Tab] 650 mg PO Q4H PRN #30 tablet 05/27/21 [Rx] Ibuprofen [Motrin] 600 mg PO Q8HR PRN #30 tab 05/27/21 [Rx] Follow up Appointment(s)/Referral(s): Terra Fuentes MD [Primary Care Provider] - 1 Week Arunlfo Cannon MD [STAFF PHYSICIAN] - 1 Week Activity/Diet/Wound Care/Special Instructions: No lifting over 10 pounds You may shower. No soaking or tub baths for 2 weeks Very light activity until you are reevaluated at your follow up appointment with your surgeon Stay on full liquids for the next 24-48 hours and then advance diet as tolerated Discharge Disposition: HOME SELF-CARE
== END 2021-05-27 17:14 | disposition home or self-care (01) | DRG 336 ==
LOC: EC 02:48 → 6PED 04:28 → 5NMEDONC 18:53
PROVIDERS: ADMIT Family Medicine; ATTEND Family Medicine
PROC: 0D9670Z Drainage of Stomach with Drainage Device, Via Natural or Artificial Opening (ICD-10-PCS; 2021-05-22)
PROC: 0DNB0ZZ Release Ileum, Open Approach (ICD-10-PCS; principal; 2021-05-22 08:30)
DX: K56.50 Intestinal adhesions [bands], unspecified as to partial versus complete obstruction (principal); R18.8 Other ascites; F17.200 Nicotine dependence, unspecified, uncomplicated; L29.9 Pruritus, unspecified; Z20.822 Contact with and (suspected) exposure to COVID-19; Z80.6 Family history of leukemia; Z82.49 Family history of ischemic heart disease and other diseases of the circulatory system; Z82.5 Family history of asthma and other chronic lower respiratory diseases; Z90.710 Acquired absence of both cervix and uterus
CPT/HCPCS: 36415; 71045; 74177; 80048; 80053; 81001; 82150; 83690; 84484; 85025; 85027; 85610; 85730; 86850; 86900; 86901; 87635; 96361; 96374; 96375; 99285

== ENCOUNTER → 2021-07-15 | Outpatient (CLI) | payer BC ==
--- NOTE | 2021-07-16 08:29 | CT ---
EXAMINATION TYPE: CT abdomen pelvis w con DATE OF EXAM: 07/15/2021 COMPARISON: 05/22/2021 HISTORY: 56-year-old female R1 0.9, abdominal pain and burning after defecation, h/o recent scar tiss ue removal in bowel sx TECHNIQUE: Contiguous axial scanning of the abdomen and pelvis following administration of 100 ml Iso anu 300 IV contrast. Delayed images through the kidneys and coronal/sagittal reconstructions perform ed. CT DLP: 334.7 mGycm Automated exposure control for dose reduction was used. FINDINGS: Heart normal size without pericardial effusion. Lung bases clear without pleural effusion. No focal liver lesion or biliary ductal dilatation. Portal venous system is patent. Gallbladder, adrenal glands, right kidney, spleen, and pancreas appear within normal limits. There is a benign 9 mm cortical cyst lateral left kidney. No dilated small bowel, free fluid, or free air. No mesenteric or retroperitoneal lymphadenopathy see n. Interval periumbilical and infraumbilical midline laparotomy change. Some surgical material at the right lower quadrant probably related to prior appendectomy. No signifi cant stool burden. Oral contrast progressed to the mid descending colon. Bladder is urine distended. Uterus surgically absent. Neither ovary clearly delineated from adjacent bowel loops. No abnormal fluid collection in the pelvis or pelvic lymphadenopathy. Bones: Facet arthropathy mid to lower lumbar spine with degenerative grade 1 anterolisthesis L4-L5. IMPRESSION: 1. INTERVAL LAPAROTOMY CHANGE ALONG THE ANTERIOR MIDLINE. RESOLUTION OF THE PREVIOUS MOBILE OBSTRUCTI ON. ORAL CONTRAST HAS PROGRESSED TO THE MID DESCENDING COLON. 2. NO ACUTE INFLAMMATORY PROCESS IDENTIFIED IN THE ABDOMEN OR PELVIS TO EXPLAIN THE PATIENT'S PAIN.
== END | disposition home or self-care (01) ==
LOC: RADCTMAIN 15:23
PROVIDERS: ATTEND Internal Medicine Geriatric Medicine
DX: R10.9 Unspecified abdominal pain (principal)
CPT/HCPCS: 74177; Q9967

== ENCOUNTER → 2023-12-29 | Outpatient (CLI) | payer BC ==
--- NOTE | 2023-12-30 23:48 | BD ---
EXAMINATION TYPE: Axial Bone Density DATE OF EXAM: 12/29/2023 CLINICAL HISTORY: 58 years old Female. ICD-10 CODE: M81.0 Osteoporosis Height: 62.5 in Weight: 108 lbs FRAX RISK QUESTIONS: History of Fracture in Adulthood: rib age 58 EXAM MEASUREMENTS: Bone mineral densitometry was performed using the Hi[employer] System. Bone mineral density as measured about the Lumbar spine is: ----- L1-L4(G/cm2): 0.870 T Score Values are as follows: ----- L1: -2.9 ----- L2: -2.9 ----- L3: -2.9 ----- L4: -2.0 ----- L1-L4: -2.6 Z Score Values are as follows: ----- L1: -1.2 ----- L2: -1.2 ----- L3: -1.2 ----- L4: -0.3 ----- L1-L4: -0.9 Bone mineral density baseline Bone mineral density about the R hip (g/cm2): 0.637 Bone mineral density about the L hip (g/cm2): 0.679 T Score values are as follows: -----R Neck: -2.7 -----L Neck: -2.6 -----R Total: -2.9 -----L Total: -2.6 Z Score values are as follows: -----R Neck: -1.1 -----L Neck: -1.0 -----R Total: -1.7 -----L Total: -1.3 Bone mineral density baseline FRAX%s: The graph provided illustrates a 18.5% chance for a major osteoporotic fx and a 4.5% chance f or the hips probability for fx in 10 years time. IMPRESSION: Osteoporosis (T Score less than -2.5). There is increased fracture risk and therapy is usually indicated based on age. Re-Screen 1-2 years. NOTE: T-SCORE=SD OF THE YOUNG ADULT MEAN.
--- NOTE | 2024-01-03 09:14 | MM ---
Reason for Exam: Screening (asymptomatic). Last mammogram was performed 5 year(s) and 4 month(s) ago. Patient History: Menarche at age 12. First Full-Term at age 26. Left ovary removed at age 47. Right ovary removed at age 47. Hysterectomy at age 42. Postmenopausal. Patient has history of breast feeding. Hormonal Contraceptives, starting at age 30 for 11 years. Risk Values: Farrah 5 year model risk: 1.5%. NCI Lifetime model risk: 8.3%. Prior Study Comparison: 07/26/2012 Bilateral Screening Mammogram, [facility]. 09/15/2016 Bilateral Screening Mammogram, [facility]. 09/05/2018 Bilateral Screening Mammogram, [facility]. Tissue Density: The breasts are heterogeneously dense, which may obscure small masses. Findings: Analyzed By CAD. There is no suspicious group of microcalcifications or new suspicious mass in either breast. Overall Assessment: Negative, BI-RAD 1 Management: Screening Mammogram of both breasts in 1 year. . Patient should continue monthly self-breast exams. A clinical breast exam by your physician is recommended on an annual basis. This exam should not preclude additional follow-up of suspicious palpable abnormalities. Note on Farrah scores and lifetime risk: 1. A Farrah score greater than 3% is considered moderate risk. If this is the case, consider specialist referral to assess eligibility for a risk reducing agent. 2. If overall lifetime risk for the development of breast cancer is 20% or higher, the patient may qualify for future screening with alternating mammogram and breast MRI. Electronically signed and approved by: Jeet Billingsley M.D. Radiologis
== END | disposition home or self-care (01) ==
LOC: RADMAMWWP 15:30
PROVIDERS: ATTEND Internal Medicine Geriatric Medicine
DX: Z12.31 Encounter for screening mammogram for malignant neoplasm of breast (principal); M81.0 Age-related osteoporosis without current pathological fracture; R92.333 Mammographic heterogeneous density, bilateral breasts; Z78.0 Asymptomatic menopausal state
CPT/HCPCS: 77067; 77080